=== PATIENT | male | born 1950 | race African-American/Black ===

== ENCOUNTER 2018-05-20 12:59 | Inpatient (IN) | payer MEDICARE, MEDICAID ==
[~2018-05-20] VITALS: Ht 172.7 cm; Wt 29.0 kg
[2018-05-20 13:30] VITALS: BP 165/83
[2018-05-20 13:55] LABS: BASOPHILS % (AUTO) 1.3 % (0.0-2.0); EOSINOPHILS % (AUTO) 0.8 % (0.0-3.0); HEMATOCRIT 47.5 % (42.0-52.0); HEMOGLOBIN 15.6 G/DL (14.2-18.0); LYMPHOCYTES % (AUTO) 17.9 % (20.0-45.0); MEAN CORPUSCULAR VOLUME 97 FL (80-99); PLATELET COUNT 222 K/UL (150-450)
[2018-05-20] MEDS ORDERED: Vancomycin 1 GM in NS 275 ML IVPB ONE (14:00)
[2018-05-20 14:25] LABS: APPEARANCE,URINE CLEAR; BILIRUBIN, URINE NEGATIVE (NEGATIVE); COLOR,URINE PALE YELLOW; GLUCOSE, URINE (UA) 4+ (NEGATIVE); KETONES,URINE NEGATIVE (NEGATIVE); LEUKOCYTE ESTERASE ,URINE NEGATIVE (NEGATIVE); NITRITE,URINE NEGATIVE (NEGATIVE); PH,URINE 6.5 (4.5-8.0); PROTEIN,URINE NEGATIVE (NEGATIVE); UROBILINOGEN,URINE NORMAL MG/DL (0.0-1.0)
[2018-05-20 14:27] LABS: ANION GAP 11 mmol/L (5-15); BLOOD UREA NITROGEN 12 mg/dL (7-18); CALCIUM 9.6 MG/DL (8.5-10.1); CARBON DIOXIDE 26 MMOL/L (21-32); CHLORIDE 89 MMOL/L (98-107); CREATININE 1.4 MG/DL (0.55-1.30); POTASSIUM 4.5 MMOL/L (3.5-5.1); SODIUM 126 MMOL/L (136-145)
[2018-05-20 14:28] LABS: ALANINE AMINOTRANSFERASE 48 U/L (12-78); ALBUMIN 3.7 G/DL (3.4-5.0); ALKALINE PHOSPHATASE 188 U/L (46-116); ASPARTATE AMINO TRANSFERASE 30 U/L (15-37); BILIRUBIN,TOTAL 0.4 MG/DL (0.2-1.0)
[2018-05-20 14:30] VITALS: BP 167/80
[2018-05-20 14:30] LABS: CREATINE KINASE 619 U/L (26-308)
--- NOTE | 2018-05-20 14:31 | Diagnostic Imaging Report ---
Indication: Chest pain Technique: XRAY Chest 1v Comparison: None Findings: Heart size and mediastinal contours are within normal limits given technique. There is evidence of prior coronary arterial stenting. Atherosclerotic calcifications noted in the aorta. There is no focal consolidation, pneumothorax or pleural effusion. Osseous structures demonstrate no acute abnormality. Impression: No radiographic evidence of acute cardiopulmonary disease. Evidence of prior coronary arterial stenting.
[2018-05-20] MEDS ORDERED: Insulin Human Regular 100units/ml 3ml IV ONE (14:45)
[2018-05-20] MEDS ORDERED: Norco 5mg/325mg tab ORAL ONE (15:15)
--- NOTE | 2018-05-20 15:41 | Emergency Room Report ---
History of Present Illness General Chief Complaint: Altered Level of Consciousness Source: Patient, EMS Present Illness HPI This patient has a history of diabetes. He presents because of right leg and foot pain. He states the pain is so severe that he cannot walk. He states the pain is developed over the past week. He admits that he has not been taking any of his medications to include his diabetes medications and he does use insulin in the evenings. He denies fever or chills. He denies nausea or vomiting. He has no other complaints. Allergies: Coded Allergies: No Known Allergies (Unverified , 05/20/18) Patient History Past Medical History: see triage record, DM, HTN Social History: Denies: smoking, alcohol use, drug use Reviewed Nursing Documentation: PMH: Agreed; PSxH: Agreed Nursing Documentation-PMH Past Medical History: No History, Except For Hx Hypertension: Yes Hx Diabetes: Yes Review of Systems All Other Systems: negative except mentioned in HPI Physical Exam Vital Signs Date Time Temp Pulse Resp B/P (MAP) Pulse Ox O2 Delivery O2 Flow Rate FiO2 05/20/18 12:52 97.6 100 18 124/67 98 Room Air 97.5 Sp02 EP Interpretation: reviewed, normal General Appearance: no apparent distress, alert, GCS 15, non-toxic Head: normocephalic, atraumatic Eyes: bilateral eye normal inspection, bilateral eye PERRL ENT: hearing grossly normal, normal pharynx, no angioedema, normal voice Neck: full range of motion, supple/symm/no masses Respiratory: chest non-tender, lungs clear, normal breath sounds, no respiratory distress, no retraction, no accessory muscle use, speaking full sentences Cardiovascular #1: regular rate, rhythm, no edema Gastrointestinal: normal bowel sounds, non tender, soft, non-distended, no guarding, no rebound Rectal: deferred Musculoskeletal: back normal, normal range of motion, other - RLE swelling and erythema. Neurologic: alert, oriented x3, responsive, motor strength/tone normal, sensory intact, speech normal Psychiatric: judgement/insight normal, memory normal, mood/affect normal, no suicidal/homicidal ideation Skin: normal color, no rash, warm/dry, well hydrated Medical Decision Making Diagnostic Impression: Primary Impression: Cellulitis Additional Impressions: Hyperglycemia Uncontrolled diabetes mellitus ER Course This patient presents with cellulitis. He also has a blood sugar of 800. This is likely from medication noncompliance, and addition to infection. The patient was given aggressive IV fluid resuscitation. He is given insulin and broad-spectrum antibiotics. He did remain stable here in the emergency department. He is admitted for further blood sugar control, IV antibiotics and further evaluation and treatment. Laboratory Tests Test 05/20/18 13:30 05/20/18 13:55 05/20/18 15:15 White Blood Count 7.0 K/UL (4.8-10.8) Red Blood Count 4.90 M/UL (4.70-6.10) Hemoglobin 15.6 G/DL (14.2-18.0) Hematocrit 47.5 % (42.0-52.0) Mean Corpuscular Volume 97 FL (80-99) Mean Corpuscular Hemoglobin 31.9 PG (27.0-31.0) H Mean Corpuscular Hemoglobin Concent 32.9 G/DL (32.0-36.0) Red Cell Distribution Width 12.0 % (11.6-14.8) Platelet Count 222 K/UL (150-450) Mean Platelet Volume 7.2 FL (6.5-10.1) Neutrophils (%) (Auto) 73.0 % (45.0-75.0) Lymphocytes (%) (Auto) 17.9 % (20.0-45.0) L Monocytes (%) (Auto) 7.0 % (1.0-10.0) Eosinophils (%) (Auto) 0.8 % (0.0-3.0) Basophils (%) (Auto) 1.3 % (0.0-2.0) Sodium Level 126 MMOL/L (136-145) L Potassium Level 4.5 MMOL/L (3.5-5.1) Chloride Level 89 MMOL/L (98-107) L Carbon Dioxide Level 26 MMOL/L (21-32) Anion Gap 11 mmol/L (5-15) Blood Urea Nitrogen 12 mg/dL (7-18) Creatinine 1.4 MG/DL (0.55-1.30) H Estimate Glomerular Filtration Rate > 60 mL/min (>60) Glucose Level 804 MG/DL (74-106) *H Calcium Level 9.6 MG/DL (8.5-10.1) Magnesium Level 2.2 MG/DL (1.8-2.4) Total Bilirubin 0.4 MG/DL (0.2-1.0) Aspartate Amino Transferase (AST) 30 U/L (15-37) Alanine Aminotransferase (ALT) 48 U/L (12-78) Alkaline Phosphatase 188 U/L (46-116) H Total Creatine Kinase 619 U/L (26-308) H Troponin I 0.024 ng/mL (0.000-0.056) Total Protein 7.5 G/DL (6.4-8.2) Albumin 3.7 G/DL (3.4-5.0) Globulin 3.8 g/dL Albumin/Globulin Ratio 1.0 (1.0-2.7) Serum Alcohol < 3 mg/dL Acetone Level Negative (NEGATIVE) Urine Color Pale yellow Urine Appearance Clear Urine pH 6.5 (4.5-8.0) Urine Specific [place] 1.010 (1.005-1.035) Urine Protein Negative (NEGATIVE) Urine Glucose (UA) 4+ (NEGATIVE) H Urine Ketones Negative (NEGATIVE) Urine Occult Blood Negative (NEGATIVE) Urine Nitrite Negative (NEGATIVE) Urine Bilirubin Negative (NEGATIVE) Urine Urobilinogen Normal MG/DL (0.0-1.0) Urine Leukocyte Esterase Negative (NEGATIVE) Lactic Acid Level Pending EKG Diagnostic Results Rate: normal Rhythm: NSR ST Segments: other - NSST Rhythm Strip Diag. Results EP Interpretation: yes Rate: 90's Rhythm: NSR, no PVC's, no ectopy Last Vital Signs Date Time Temp Pulse Resp B/P (MAP) Pulse Ox O2 Delivery O2 Flow Rate FiO2 05/20/18 14:30 98.9 94 18 167/80 100 Room Air 98.9 Disposition: ADMITTED INPATIENT Condition: Serious Scripts Pioglitazone Hcl* (ACTOS*) 15 Mg Tablet 15 MG ORAL DAILY for 30 Days, TAB Prov: Elliott Valero MD 05/22/18 Hydrocodone Bit/Acetaminophen 5-325* ([place] 5-325*) 1 Each Tablet 1 TAB ORAL Q6H PRN for 7 Days, TAB Prov: Elliott Valero MD 05/22/18 Colchicine (COLCRYS) 0.6 Mg Tablet 0.6 MG ORAL EVERY 6 HOURS for 3 Days, TAB Prov: Elliott Valero MD 05/22/18 Referrals: NOT CHOSEN IPA/,REFERRING (PCP) Yana Fritz DO May 20, 2018 15:41
[2018-05-20] MEDS ORDERED: Insulin Human Regular 100units/ml 3ml SUBQ ONE (16:00)
[2018-05-20] MEDS ORDERED: METFORMIN HYDRO25 G1 PO (16:59)
[2018-05-20] MEDS ORDERED: LANTUS SOL100 UNIT/1 SUBQ (17:22)
[2018-05-20] MEDS ORDERED: GLIPIZIDE5 MG ORAL (17:28)
[2018-05-20 17:49] VITALS: BP 159/85
[2018-05-20 18:19] VITALS: BP 159/85
[2018-05-20 18:28] VITALS: BP 128/63
[2018-05-20] MEDS ORDERED: Sodium Chloride 500ML 550 ML IV SCH (19:30)
[2018-05-20 20:00] VITALS: BP 108/67
[2018-05-20] MEDS: cefTRIAXone 1gm/D5W 55ml IVPB SCH ×2 (21:48)
[2018-05-20] MEDS: NovoLOG Insulin Flexpen SUBQ SCH (22:02)
[2018-05-20] MEDS: Levemir Flexpen SUBQ SCH (22:03)
[2018-05-20] MEDS: Heparin 5000 units/ml inj SUBQ SCH (22:54)
--- NOTE | 2018-05-20 23:15 | Consultation ---
DATE OF CONSULTATION: 05/20/2018 ENDOCRINOLOGY CONSULTATION CONSULTING PHYSICIAN: Paulo Gaston M.D. REFERRING PHYSICIAN: Elliott Valero M.D. REASON FOR CONSULTATION: Diabetes management. HISTORY OF PRESENT ILLNESS: It is important to note that history is mostly obtained from review of the chart and medical records since the patient is lethargic and not participating with the interview. The patient has history of diabetes and hypertension. Apparently as an outpatient, he is on metformin, glipizide, and Lantus. He presented to the hospital with right leg and foot pain and blood sugar was 800 without any ketoacidosis. Lactic acid is elevated. Endocrinology was consulted for evaluation and management of hyperglycemia. PAST MEDICAL HISTORY: Diabetes and hypertension. PAST SURGICAL HISTORY: None. SOCIAL HISTORY: No smoking, alcohol, or drug use. REVIEW OF SYSTEMS: Difficult to obtain. FAMILY HISTORY: Noncontributory. REVIEW OF SYSTEMS: Unobtainable. LABORATORY AND DIAGNOSTIC DATA: WBC 7, hemoglobin 15, hematocrit 47, and platelet of 222,000. Sodium 126, potassium 4.5, chloride 89, bicarbonate 26, BUN 11, creatinine 1.4, and glucose of 800. Lactic acid 2.9. CPK 619. PHYSICAL EXAMINATION: GENERAL: He is lethargic. VITAL SIGNS: Temperature 96.1 degrees, pulse 83, respiratory rate 20, and blood pressure 128/63. HEENT: Pupils are equal and reactive to light. Oral mucosa is dry. NECK: No JVD. HEART: Regular. LUNGS: Clear. ABDOMEN: Positive bowel sounds. EXTREMITIES: Lower extremity positive for edema and erythema. DIAGNOSES: 1. Diabetes, out of control without diabetic ketoacidosis. 2. Lactic acidosis. 3. Hyponatremia, dilutional hyponatremia due to hyperglycemia. 4. Hypothermia. 5. Cellulitis. PLAN: 1. IV hydration with normal saline. 2. Levemir 30 units at bedtime. 3. NovoLog 10 units before each meal. 4. NovoLog sliding scale before meals and at bedtime. 5. Discontinue metformin. 6. Discontinue glipizide. 7. Broad-spectrum antibiotics per primary care. 8. I will follow the patient during the hospital stay. 9. Check thyroid function test, as the patient is hypothermic. Thank you, Dr. Valero, for the courtesy of this consultation. Paulo Gaston M.D. DR: OLIVIA JOB#: [id number] CC: YOLANDA
[2018-05-21] VITALS: BP 137/71
[2018-05-21 04:00] VITALS: BP_SYST 137; BP_DIAS 66; BP_DIAS 71
[2018-05-21] MEDS: NovoLOG Insulin Flexpen SUBQ SCH ×7 (06:30→22:00)
--- NOTE | 2018-05-21 07:28 | General Progress Note ---
Assessment/Plan Problem List: (1) Uncontrolled diabetes mellitus ICD Codes: E11.65 - Type 2 diabetes mellitus with hyperglycemia SNOMED: 432649031, 61304641 (2) Cellulitis ICD Codes: L03.90 - Cellulitis, unspecified SNOMED: 179422390 Assessment/Plan continue Levemir 30 units qhs continue Novolog 10 units ac tid + NISS continue to hold Metfromin and Glipizide Subjective ROS Limited/Unobtainable: Yes Allergies: Coded Allergies: No Known Allergies (Unverified , 05/20/18) Subjective events noted - fasting glucose improved am labs pending Objective Last 24 Hour Vital Signs Date Time Temp Pulse Resp B/P (MAP) Pulse Ox O2 Delivery O2 Flow Rate FiO2 05/21/18 04:00 97.7 83 19 137/66 (89) 99 97.7 05/21/18 00:00 98.8 88 18 137/71 (93) 100 98.8 05/20/18 20:00 98.2 79 18 108/67 (81) 99 98.2 05/20/18 20:00 Room Air 05/20/18 18:28 96.1 83 20 128/63 (84) 97 96.1 05/20/18 18:19 97.5 79 15 159/85 100 Room Air 97.5 05/20/18 18:19 97.8 79 15 159/85 100 Room Air 05/20/18 17:49 74 15 159/85 100 Room Air 05/20/18 17:23 187/81 05/20/18 14:30 98.9 94 18 167/80 100 Room Air 98.9 05/20/18 13:30 98.9 99 17 165/83 99 Room Air 98.9 05/20/18 12:52 97.6 100 18 124/67 98 Room Air 97.5 Intake and Output 05/20/18 05/21/18 19:00 07:00 Intake Total 183.708 ml Balance 183.708 ml Intake IV Total 183.708 ml Laboratory Tests 05/20/18 13:30: White Blood Count 7.0, Red Blood Count 4.90, Hemoglobin 15.6, Hematocrit 47.5, Mean Corpuscular Volume 97, Mean Corpuscular Hemoglobin 31.9H, Mean Corpuscular Hemoglobin Concent 32.9, Red Cell Distribution Width 12.0, Platelet Count 222, Mean Platelet Volume 7.2, Neutrophils (%) (Auto) 73.0, Lymphocytes (%) (Auto) 17.9L, Monocytes (%) (Auto) 7.0, Eosinophils (%) (Auto) 0.8, Basophils (%) (Auto ) 1.3, Sodium Level 126L, Potassium Level 4.5, Chloride Level 89L, Carbon Dioxide Level 26, Anion Gap 11, Blood Urea Nitrogen 12, Creatinine 1.4H, Estimat Glomerular Filtration Rate > 60, Glucose Level 804*H, Hemoglobin A1c 11.8H, Calcium Level 9.6, Magnesium Level 2.2, Total Bilirubin 0.4, Aspartate Amino Transf (AST/SGOT) 30, Alanine Aminotransferase (ALT/SGPT) 48, Alkaline Phosphatase 188H, Total Creatine Kinase 619H, Troponin I 0.024, Total Protein 7.5, Albumin 3.7, Globulin 3.8, Albumin/Globulin Ratio 1.0, Thyroid Stimulating Hormone (TSH) 0.689, Free Thyroxine 1.35, Serum Alcohol < 3, Acetone Level Negative 05/20/18 13:55: Urine Color Pale yellow, Urine Appearance Clear, Urine pH 6.5, Urine Specific [place] 1.010, Urine Protein Negative, Urine Glucose (UA) 4+H, Urine Ketones Negative, Urine Occult Blood Negative, Urine Nitrite Negative, Urine Bilirubin Negative, Urine Urobilinogen Normal, Urine Leukocyte Esterase Negative 05/20/18 15:15: Lactic Acid Level 2.90H 05/20/18 15:52: Lactic Acid Level 2.70H Height (Feet): 5 Height (Inches): 8.00 Weight (Pounds): 140 General Appearance: no apparent distress Neck: normal alignment Cardiovascular: normal rate Respiratory/Chest: lungs clear Abdomen: normal bowel sounds Objective Current Medications Medications (Trade) Dose Ordered Sig/Robbie Route PRN Reason Start Time Stop Time Status Last Admin Dose Admin Ceftriaxone Sodium 1 gm/ Dextrose 55 ml @ 110 mls/hr DAILY IVPB 05/20/18 21:00 05/27/18 20:59 05/20/18 21:48 Clonidine HCl (Catapres Tab) 0.1 mg Q6HR PRN ORAL SBP>150 05/20/18 19:30 06/19/18 19:29 Dextrose (Dextrose 50%) 25 ml STAT PRN IV Hypoglycemia 05/20/18 19:30 06/19/18 19:29 Dextrose (Dextrose 50%) 50 ml STAT PRN IV Hypoglycemia 05/20/18 19:30 06/19/18 19:29 Heparin Sodium (Porcine) (Heparin 5000 units/ml) 5,000 units EVERY 12 HOURS SUBQ 05/20/18 21:00 06/19/18 20:59 05/20/18 22:54 Insulin Aspart (NovoLOG) BEFORE MEALS AND HS SUBQ 05/20/18 21:00 06/19/18 20:59 05/21/18 06:36 Insulin Aspart (NovoLOG) 10 units NOVOTIAC SUBQ 05/21/18 06:30 06/20/18 06:29 Insulin Detemir (Levemir) 30 units BEDTIME SUBQ 05/20/18 21:00 06/19/18 20:59 05/20/18 22:03 Sodium Chloride 1,000 ml @ 75 mls/hr [id number] IV 05/20/18 20:00 06/19/18 19:59 05/20/18 21:48 Item Value Date Time Bedside Blood Glucose 187 mg/dl H 05/21/18 0636 Bedside Blood Glucose 145 mg/dl H 05/20/18 2203 Bedside Blood Glucose 301 mg/dl H 05/20/18 1732 Glucose Level 804 MG/DL *H 05/20/18 1330 Bedside Blood Glucose Critically High Result 05/20/18 1445 Paulo Gaston MD May 21, 2018 07:28
[2018-05-21 08:00] VITALS: BP 146/88
[2018-05-21] MEDS: cefTRIAXone 1gm/D5W 55ml IVPB SCH ×2 (08:30)
[2018-05-21] MEDS: Heparin 5000 units/ml inj SUBQ SCH ×2 (08:32→21:59)
[2018-05-21 11:37] VITALS: BP 134/96
--- NOTE | 2018-05-21 12:47 | Diagnostic Imaging Report ---
Indication: Right foot pain Technique: 3 views right foot Comparison: none Findings: There is hallux valgus and bunion formation. There is mild metatarsus adductus. No acute fractures. No dislocations. Joint spaces are preserved Impression: No acute bony trauma
[2018-05-21 13:12] LABS: BASOPHILS % (AUTO) 1.3 % (0.0-2.0); EOSINOPHILS % (AUTO) 1.7 % (0.0-3.0); HEMATOCRIT 44.8 % (42.0-52.0); HEMOGLOBIN 14.8 G/DL (14.2-18.0); LYMPHOCYTES % (AUTO) 21.4 % (20.0-45.0); MEAN CORPUSCULAR VOLUME 97 FL (80-99); MONOCYTES % (AUTO) 5.4 % (1.0-10.0); NEUTROPHILS % (AUTO) 70.3 % (45.0-75.0); PLATELET COUNT 212 K/UL (150-450); RED BLOOD COUNT 4.64 M/UL (4.70-6.10); RED CELL DISTRIBUTION WIDTH 12.4 % (11.6-14.8); WHITE BLOOD COUNT 6.8 K/UL (4.8-10.8)
[2018-05-21 13:33] LABS: ALANINE AMINOTRANSFERASE 41 U/L (12-78); ALBUMIN 2.9 G/DL (3.4-5.0); ALBUMIN/GLOBULIN RATIO 0.8 (1.0-2.7); ALKALINE PHOSPHATASE 118 U/L (46-116); ANION GAP 9 mmol/L (5-15); ASPARTATE AMINO TRANSFERASE 33 U/L (15-37); BILIRUBIN,TOTAL 0.3 MG/DL (0.2-1.0); BLOOD UREA NITROGEN 11 mg/dL (7-18); CALCIUM 8.8 MG/DL (8.5-10.1); CARBON DIOXIDE 28 MMOL/L (21-32); CHLORIDE 104 MMOL/L (98-107); POTASSIUM 4.3 MMOL/L (3.5-5.1); SODIUM 141 MMOL/L (136-145)
[2018-05-21 16:00] VITALS: BP 156/87
--- NOTE | 2018-05-21 18:15 | History and Physical Report ---
DATE OF ADMISSION: 05/20/2018 HISTORY OF PRESENT ILLNESS: This is a 67-year-old male, who came to the hospital with hyperglycemia. The patient states he is having right leg and right foot pain as well. The patient states that he was previously taking glipizide, although he has stopped taking it recently for unclear reasons. Overnight, he was seen by Dr. Paulo Gaston, who documented type 2 diabetes mellitus with hyperglycemia and right lower extremity cellulitis. The patient was started on Levemir and NovoLog. The patient at this time reports right foot pain. PAST MEDICAL HISTORY: Notable for diabetes mellitus. There is history of CABG and CAD as well. HOME MEDICATIONS: Include metformin and glipizide. ALLERGIES: None reported. REVIEW OF SYSTEMS: Denies any headaches, hematemesis, melena, hematochezia, night sweats, or weight loss. PHYSICAL EXAMINATION: GENERAL: Reveals a 67-year-old male. HEENT: Unremarkable. LUNGS: Clear breath sounds bilaterally. ABDOMEN: Soft. EXTREMITIES: There is no edema. His right lower extremity shows no evidence of cellulitis. He has dark skin, therefore, it is difficult to distinguish any area of inflammation. He has difficulty moving his right great toe. He has evidence of bilateral fungal toenail infection. NEUROLOGIC: Nonfocal. LABORATORY DATA: Lab testing shows normal CBC. Chemistry notable for glucose of 804, creatinine 1.4, and sodium 126. Urinalysis is negative. Imaging is negative except for evidence of prior coronary artery bypass graft/neurotomy on chest x-ray. IMPRESSION: 1. Hyperglycemia. 2. Probable gout. 3. Toenail fungus. 4. Diabetes mellitus. 5. Hypertension. DISCUSSION: Admitted to the hospital. I will continue drug regimen per Dr. Gaston. Empiric antibiotics, Rocephin and vancomycin, which have now been discontinued and Rocephin has been reordered. I will start colchicine. If his renal function normalizes, I will start him back on metformin. We will follow carefully. Elliott Valero M.D. DR: FERCHO JOB#: [id number] CC:
[2018-05-21] MEDS: Norco 5mg/325mg tab ORAL PRN (19:53)
[2018-05-21 20:00] VITALS: BP 195/106
[2018-05-21] MEDS: Levemir Flexpen SUBQ SCH (22:00)
--- NOTE | 2018-05-21 22:00 | Consultation ---
DATE OF CONSULTATION: 05/21/2018 CONSULTING PHYSICIAN: Yung Dozier M.D. REFERRING PHYSICIAN: Elliott Valero M.D. REASON FOR CONSULTATION: 1. Acute kidney injury. 2. Hyponatremia. HISTORY OF PRESENT ILLNESS: The patient is a pleasant 67-year-old gentleman with known underlying diabetes mellitus, who presented to the emergency room for evaluation and care of right leg and foot pain to the point where he stated he was having difficulty walking felt fatigued and noted to have a severe elevated serum glucose of 800 with a sodium of 126 and creatinine of 1.4. He denied any nausea, vomiting, or diarrhea. PAST MEDICAL HISTORY: 1. Diabetes mellitus. 2. Hypertension. PAST SURGICAL HISTORY: Noncontributory. ALLERGIES: No known drug allergies. SOCIAL HISTORY: No tobacco, alcohol, or illicit drug use. FAMILY HISTORY: Positive for diabetes and hypertension. PHYSICAL EXAMINATION: VITAL SIGNS: Blood pressure 134/96, respiratory rate 20, pulse 87, and temperature 98.1. GENERAL: The patient is awake, alert, and not otherwise in distress. HEENT: Extraocular muscles intact. No lymphadenopathy. CARDIOVASCULAR: S1 and S2. No rubs or gallops. PULMONARY: Clear to auscultation bilaterally. No rales, rhonchi, or wheezes. ABDOMEN: Nondistended and nontender. EXTREMITIES: No edema. SKIN: No rashes. LABORATORY DATA: Laboratories dated 05/20/2018, sodium 126, creatinine 1.4, and glucose 804. White cell count 7, hemoglobin 15.6, and platelet count 222,000. ASSESSMENT AND PLAN: 1. Hyponatremia. At this time, pseudo in nature due to severe elevated glucose. As glucose elevation is corrected, pseudohyponatremia will resolve. Continue with IV fluids. 2. Acute kidney injury secondary to intravascular volume prerenal depletion. At this time, intravenous fluids and correction of underlying severe hyperglycemia has been undertaken by Endocrinology. Morning laboratories are still pending. Hopefully, with hydration and correction of underlying severe hyperglycemia, renal function will return to normal. We will defer on further evaluation at this time until morning laboratories return. 3. Severe hyperglycemia. Being managed by Endocrinology. 4. Dehydration. The patient has been aggressively hydrated. Let me take this opportunity to thank Dr. Valero. Yung Dozier MD DR: DENAE JOB#: [id number] CC: YOLANDA
[2018-05-22] MEDS: Norco 5mg/325mg tab ORAL PRN (03:29)
[2018-05-22 04:00] VITALS: BP 157/91
[2018-05-22] MEDS: NovoLOG Insulin Flexpen SUBQ SCH ×2 (06:12)
[2018-05-22 06:47] LABS: BASOPHILS % (AUTO) 1.2 % (0.0-2.0); EOSINOPHILS % (AUTO) 1.8 % (0.0-3.0); HEMATOCRIT 44.8 % (42.0-52.0); HEMOGLOBIN 15.6 G/DL (14.2-18.0); LYMPHOCYTES % (AUTO) 21.8 % (20.0-45.0); MEAN CORPUSCULAR VOLUME 96 FL (80-99); MONOCYTES % (AUTO) 8.9 % (1.0-10.0); NEUTROPHILS % (AUTO) 66.3 % (45.0-75.0); PLATELET COUNT 208 K/UL (150-450); RED BLOOD COUNT 4.64 M/UL (4.70-6.10); RED CELL DISTRIBUTION WIDTH 12.3 % (11.6-14.8); WHITE BLOOD COUNT 5.9 K/UL (4.8-10.8)
--- NOTE | 2018-05-22 06:55 | General Progress Note ---
Assessment/Plan Problem List: (1) Uncontrolled diabetes mellitus ICD Codes: E11.65 - Type 2 diabetes mellitus with hyperglycemia SNOMED: 983001274, [id number] (2) Cellulitis ICD Codes: L03.90 - Cellulitis, unspecified SNOMED: 968805505 Assessment/Plan fasting glucose is elevated after he refused Levemir last night change Levemir 30 units qhs to 20 units qam continue Novolog 10 units ac tid + NISS continue to hold Metfromin and Glipizide Subjective Allergies: Coded Allergies: No Known Allergies (Unverified , 05/20/18) All Systems: reviewed and negative except above Subjective events noted Objective Last 24 Hour Vital Signs Date Time Temp Pulse Resp B/P (MAP) Pulse Ox O2 Delivery O2 Flow Rate FiO2 05/22/18 04:00 98.0 88 19 157/91 (113) 99 98.0 05/21/18 21:00 Room Air 05/21/18 20:00 97.9 112 22 195/106 (135) 99 97.9 05/21/18 16:00 98.1 92 20 156/87 (110) 97 98.1 05/21/18 11:37 98.1 87 20 134/96 (109) 97 98.1 05/21/18 09:00 Room Air 05/21/18 08:00 97.6 88 20 146/88 (107) 97 97.6 Intake and Output 05/21/18 05/22/18 19:00 07:00 Intake Total 1175 ml Balance 1175 ml Intake Oral 500 ml IV Total 675 ml # Voids 3 2 Laboratory Tests 05/21/18 12:55: White Blood Count 6.8, Red Blood Count 4.64L, Hemoglobin 14.8, Hematocrit 44.8, Mean Corpuscular Volume 97, Mean Corpuscular Hemoglobin 31.9H, Mean Corpuscular Hemoglobin Concent 33.0, Red Cell Distribution Width 12.4, Platelet Count 212, Mean Platelet Volume 7.2, Neutrophils (%) (Auto) 70.3, Lymphocytes (%) (Auto) 21.4, Monocytes (%) (Auto) 5.4, Eosinophils (%) (Auto) 1.7, Basophils (%) (Auto ) 1.3, Sodium Level 141#, Potassium Level 4.3, Chloride Level 104, Carbon Dioxide Level 28, Anion Gap 9, Blood Urea Nitrogen 11, Creatinine 1.0, Estimat Glomerular Filtration Rate > 60, Glucose Level 114#H, Calcium Level 8.8, Total Bilirubin 0.3, Aspartate Amino Transf (AST/SGOT) 33, Alanine Aminotransferase ( ALT/SGPT) 41, Alkaline Phosphatase 118H, Total Protein 6.4, Albumin 2.9L, Globulin 3.5, Albumin/Globulin Ratio 0.8L 05/22/18 06:15: White Blood Count [Pending], Red Blood Count [Pending], Hemoglobin [Pending], Hematocrit [Pending], Mean Corpuscular Volume [Pending], Mean Corpuscular Hemoglobin [Pending], Mean Corpuscular Hemoglobin Concent [Pending], Red Cell Distribution Width [Pending], Platelet Count [Pending], Mean Platelet Volume [ Pending], Neutrophils (%) (Auto) [Pending], Lymphocytes (%) (Auto) [Pending], Monocytes (%) (Auto) [Pending], Eosinophils (%) (Auto) [Pending], Basophils (%) (Auto) [Pending], Sodium Level [Pending], Potassium Level [Pending], Chloride Level [Pending], Carbon Dioxide Level [Pending], Blood Urea Nitrogen [Pending], Creatinine [Pending], Estimat Glomerular Filtration Rate [Pending], Glucose Level [Pending], Calcium Level [Pending] Height (Feet): 5 Height (Inches): 8.00 Weight (Pounds): 64 General Appearance: no apparent distress Neck: normal alignment Cardiovascular: normal rate Respiratory/Chest: lungs clear Abdomen: normal bowel sounds Objective Current Medications Medications (Trade) Dose Ordered Sig/Robbie Route PRN Reason Start Time Stop Time Status Last Admin Dose Admin Acetaminophen (Tylenol) 650 mg Q6H PRN ORAL Mild Pain/Temp > 100.5 05/21/18 09:30 06/20/18 09:29 Acetaminophen/ Hydrocodone Bitart ([place] 5/325) 1 tab Q6H PRN ORAL Severe Pain (Pain Scale 7-10) 05/21/18 19:45 05/28/18 19:44 05/22/18 03:29 Ceftriaxone Sodium 1 gm/ Dextrose 55 ml @ 110 mls/hr DAILY IVPB 05/20/18 21:00 7/30/18 20:59 05/21/18 08:30 Clonidine HCl (Catapres Tab) 0.1 mg Q6HR PRN ORAL SBP>150 05/20/18 19:30 06/19/18 19:29 Colchicine (Colchicine) 0.6 mg EVERY 6 HOURS ORAL 05/21/18 12:00 06/20/18 11:59 05/22/18 06:13 Dextrose (Dextrose 50%) 25 ml STAT PRN IV Hypoglycemia 05/20/18 19:30 06/19/18 19:29 Dextrose (Dextrose 50%) 50 ml STAT PRN IV Hypoglycemia 05/20/18 19:30 06/19/18 19:29 Heparin Sodium (Porcine) (Heparin 5000 units/ml) 5,000 units EVERY 12 HOURS SUBQ 05/20/18 21:00 06/19/18 20:59 05/21/18 08:32 Insulin Aspart (NovoLOG) BEFORE MEALS AND HS SUBQ 05/20/18 21:00 06/19/18 20:59 05/22/18 06:12 Insulin Aspart (NovoLOG) 10 units NOVOTIAC SUBQ 05/21/18 06:30 06/20/18 06:29 05/22/18 06:12 Insulin Detemir (Levemir) 30 units BEDTIME SUBQ 05/20/18 21:00 06/19/18 20:59 05/20/18 22:03 Sodium Chloride 1,000 ml @ 75 mls/hr [id number] IV 05/20/18 20:00 06/19/18 19:59 05/21/18 09:32 Item Value Date Time Bedside Blood Glucose 223 mg/dl H 05/22/18 0612 Bedside Blood Glucose 191 mg/dl H 05/21/18 1637 Bedside Blood Glucose 286 mg/dl H 05/21/18 1143 Bedside Blood Glucose 187 mg/dl H 05/21/18 0636 Paulo Gaston MD May 22, 2018 06:55
[2018-05-22 07:01] LABS: ANION GAP 7 mmol/L (5-15); BLOOD UREA NITROGEN 11 mg/dL (7-18); CALCIUM 9.2 MG/DL (8.5-10.1); CARBON DIOXIDE 29 MMOL/L (21-32); CHLORIDE 100 MMOL/L (98-107); POTASSIUM 5.1 MMOL/L (3.5-5.1); SODIUM 136 MMOL/L (136-145)
[2018-05-22] MEDS: cefTRIAXone 1gm/D5W 55ml IVPB SCH ×2 (08:06)
[2018-05-22] MEDS: Heparin 5000 units/ml inj SUBQ SCH (08:06)
[2018-05-22 08:43] VITALS: BP 153/93
--- NOTE | 2018-05-22 08:45 | Nephrology Progress Note ---
Assessment/Plan Assessment/Plan 1. MALENA- due to volume depletion - resolved - OK for DC from renal point 2. Hyponatremia- pseudo due to severe hyperglycemia - resolved 3. Dehydration- resolved on IVFs. OK for DC from renal point 4. DM OOC- resolved Subjective Date patient seen: May 22, 2018 Time patient seen: 08:43 ROS Limited/Unobtainable: Yes Allergies: Coded Allergies: No Known Allergies (Unverified , 05/20/18) Subjective Patient doing well, currently in shower Objective Last 24 Hour Vital Signs Date Time Temp Pulse Resp B/P (MAP) Pulse Ox O2 Delivery O2 Flow Rate FiO2 05/22/18 08:43 98.0 82 19 153/93 (113) 99 98.0 05/22/18 07:29 Room Air 05/22/18 04:00 98.0 88 19 157/91 (113) 99 98.0 05/21/18 21:00 Room Air 05/21/18 20:00 97.9 112 22 195/106 (135) 99 97.9 05/21/18 16:00 98.1 92 20 156/87 (110) 97 98.1 05/21/18 11:37 98.1 87 20 134/96 (109) 97 98.1 05/21/18 09:00 Room Air Intake and Output 05/21/18 05/22/18 19:00 07:00 Intake Total 1175 ml Balance 1175 ml Intake Oral 500 ml IV Total 675 ml # Voids 3 2 Laboratory Tests 05/21/18 12:55: White Blood Count 6.8, Red Blood Count 4.64L, Hemoglobin 14.8, Hematocrit 44.8, Mean Corpuscular Volume 97, Mean Corpuscular Hemoglobin 31.9H, Mean Corpuscular Hemoglobin Concent 33.0, Red Cell Distribution Width 12.4, Platelet Count 212, Mean Platelet Volume 7.2, Neutrophils (%) (Auto) 70.3, Lymphocytes (%) (Auto) 21.4, Monocytes (%) (Auto) 5.4, Eosinophils (%) (Auto) 1.7, Basophils (%) (Auto ) 1.3, Sodium Level 141#, Potassium Level 4.3, Chloride Level 104, Carbon Dioxide Level 28, Anion Gap 9, Blood Urea Nitrogen 11, Creatinine 1.0, Estimat Glomerular Filtration Rate > 60, Glucose Level 114#H, Calcium Level 8.8, Total Bilirubin 0.3, Aspartate Amino Transf (AST/SGOT) 33, Alanine Aminotransferase ( ALT/SGPT) 41, Alkaline Phosphatase 118H, Total Protein 6.4, Albumin 2.9L, Globulin 3.5, Albumin/Globulin Ratio 0.8L 05/22/18 06:15: White Blood Count 5.9, Red Blood Count 4.64L, Hemoglobin 15.6, Hematocrit 44.8, Mean Corpuscular Volume 96, Mean Corpuscular Hemoglobin 33.5H, Mean Corpuscular Hemoglobin Concent 34.7, Red Cell Distribution Width 12.3, Platelet Count 208, Mean Platelet Volume 7.4, Neutrophils (%) (Auto) 66.3, Lymphocytes (%) (Auto) 21.8, Monocytes (%) (Auto) 8.9, Eosinophils (%) (Auto) 1.8, Basophils (%) (Auto ) 1.2, Sodium Level 136, Potassium Level 5.1, Chloride Level 100, Carbon Dioxide Level 29, Anion Gap 7, Blood Urea Nitrogen 11, Creatinine 1.0, Estimat Glomerular Filtration Rate > 60, Glucose Level 257#H, Calcium Level 9.2 Height (Feet): 5 Height (Inches): 8.00 Weight (Pounds): 64 Yung Dozier M.D. May 22, 2018 08:45
--- NOTE | 2018-05-22 08:53 | Pulmonology Progress Note ---
Assessment/Plan Assessment/Plan IMPRESSION: 1. Hyperglycemia. 2. Probable gout. 3. Toenail fungus. 4. Diabetes mellitus. 5. Hypertension. DISCUSSION: A Will dc home PO colchicine, [place], Glipizide and Actos Will dc Metformin given renal dysfunction and lactic acidosis (per Verónicazemi) Outpt follow up. Subjective Interval Events: Better; cr now 1.0 Constitutional: Reports: no symptoms HEENT: Repors: no symptoms Respiratory: Reports: no symptoms Cardiovascular: Reports: no symptoms Gastrointestinal/Abdominal: Reports: no symptoms Allergies: Coded Allergies: No Known Allergies (Unverified , 05/20/18) Objective Last 24 Hour Vital Signs Date Time Temp Pulse Resp B/P (MAP) Pulse Ox O2 Delivery O2 Flow Rate FiO2 05/22/18 08:43 98.0 82 19 153/93 (113) 99 98.0 05/22/18 07:29 Room Air 05/22/18 04:00 98.0 88 19 157/91 (113) 99 98.0 05/21/18 21:00 Room Air 05/21/18 20:00 97.9 112 22 195/106 (135) 99 97.9 05/21/18 16:00 98.1 92 20 156/87 (110) 97 98.1 05/21/18 11:37 98.1 87 20 134/96 (109) 97 98.1 05/21/18 09:00 Room Air Intake and Output 05/21/18 05/22/18 19:00 07:00 Intake Total 1175 ml Balance 1175 ml Intake Oral 500 ml IV Total 675 ml # Voids 3 2 General Appearance: no acute distress HEENT: normocephalic Respiratory/Chest: chest wall non-tender, lungs clear Cardiovascular: normal peripheral pulses, normal rate Abdomen: normal bowel sounds Extremities: no cyanosis Microbiology Date/Time Source Procedure Growth Status 05/20/18 13:45 Blood Blood Culture - Preliminary NO GROWTH AFTER 24 HOURS Resulted 05/20/18 13:30 Blood Blood Culture - Preliminary NO GROWTH AFTER 24 HOURS Resulted Laboratory Tests 05/21/18 12:55: White Blood Count 6.8, Red Blood Count 4.64L, Hemoglobin 14.8, Hematocrit 44.8, Mean Corpuscular Volume 97, Mean Corpuscular Hemoglobin 31.9H, Mean Corpuscular Hemoglobin Concent 33.0, Red Cell Distribution Width 12.4, Platelet Count 212, Mean Platelet Volume 7.2, Neutrophils (%) (Auto) 70.3, Lymphocytes (%) (Auto) 21.4, Monocytes (%) (Auto) 5.4, Eosinophils (%) (Auto) 1.7, Basophils (%) (Auto ) 1.3, Sodium Level 141#, Potassium Level 4.3, Chloride Level 104, Carbon Dioxide Level 28, Anion Gap 9, Blood Urea Nitrogen 11, Creatinine 1.0, Estimat Glomerular Filtration Rate > 60, Glucose Level 114#H, Calcium Level 8.8, Total Bilirubin 0.3, Aspartate Amino Transf (AST/SGOT) 33, Alanine Aminotransferase ( ALT/SGPT) 41, Alkaline Phosphatase 118H, Total Protein 6.4, Albumin 2.9L, Globulin 3.5, Albumin/Globulin Ratio 0.8L 05/22/18 06:15: White Blood Count 5.9, Red Blood Count 4.64L, Hemoglobin 15.6, Hematocrit 44.8, Mean Corpuscular Volume 96, Mean Corpuscular Hemoglobin 33.5H, Mean Corpuscular Hemoglobin Concent 34.7, Red Cell Distribution Width 12.3, Platelet Count 208, Mean Platelet Volume 7.4, Neutrophils (%) (Auto) 66.3, Lymphocytes (%) (Auto) 21.8, Monocytes (%) (Auto) 8.9, Eosinophils (%) (Auto) 1.8, Basophils (%) (Auto ) 1.2, Sodium Level 136, Potassium Level 5.1, Chloride Level 100, Carbon Dioxide Level 29, Anion Gap 7, Blood Urea Nitrogen 11, Creatinine 1.0, Estimat Glomerular Filtration Rate > 60, Glucose Level 257#H, Calcium Level 9.2 Current Medications Medications (Trade) Dose Ordered Sig/Robbie Route PRN Reason Start Time Stop Time Status Last Admin Dose Admin Acetaminophen (Tylenol) 650 mg Q6H PRN ORAL Mild Pain/Temp > 100.5 05/21/18 09:30 06/20/18 09:29 Acetaminophen/ Hydrocodone Bitart ([place] 5/325) 1 tab Q6H PRN ORAL Severe Pain (Pain Scale 7-10) 05/21/18 19:45 05/28/18 19:44 05/22/18 03:29 Ceftriaxone Sodium 1 gm/ Dextrose 55 ml @ 110 mls/hr DAILY IVPB 05/20/18 21:00 05/27/18 20:59 05/22/18 08:06 Clonidine HCl (Catapres Tab) 0.1 mg Q6HR PRN ORAL SBP>150 05/20/18 19:30 06/19/18 19:29 Colchicine (Colchicine) 0.6 mg EVERY 6 HOURS ORAL 05/21/18 12:00 06/20/18 11:59 05/22/18 06:13 Dextrose (Dextrose 50%) 25 ml STAT PRN IV Hypoglycemia 05/20/18 19:30 06/19/18 19:29 Dextrose (Dextrose 50%) 50 ml STAT PRN IV Hypoglycemia 05/20/18 19:30 06/19/18 19:29 Heparin Sodium (Porcine) (Heparin 5000 units/ml) 5,000 units EVERY 12 HOURS SUBQ 05/20/18 21:00 06/19/18 20:59 05/22/18 08:06 Insulin Aspart (NovoLOG) BEFORE MEALS AND HS SUBQ 05/20/18 21:00 06/19/18 20:59 05/22/18 06:12 Insulin Aspart (NovoLOG) 10 units NOVOTIAC SUBQ 05/21/18 06:30 06/20/18 06:29 05/22/18 06:12 Insulin Detemir (Levemir) 20 units DAILY SUBQ 05/22/18 09:00 06/19/18 20:59 05/22/18 08:07 Sodium Chloride 1,000 ml @ 75 mls/hr [id number] IV 05/20/18 20:00 06/19/18 19:59 05/21/18 09:32 Elliott Valero MD May 22, 2018 08:53
[2018-05-22] MEDS ORDERED: NORCO 5-325 TA1 EACH ORAL (08:57)
[2018-05-22] MEDS ORDERED: COLCRYS0.6 M1 ORAL (08:57)
[2018-05-22] MEDS ORDERED: ACTOS15 MG ORAL (08:57)
[2018-05-22] MEDS ORDERED: Levemir Flexpen SUBQ SCH (09:00)
--- NOTE | 2018-05-22 15:46 | Cardiology Report ---
APPROVED REPORT EKG Measurement Heart [id number] CT 148P65 [id number] Normal sinus rhythm Minimal voltage criteria for LVH, may be normal variant T wave abnormality, consider lateral ischemia Prolonged QT Abnormal ECG
--- NOTE | 2018-05-23 09:59 | Discharge Summary ---
Discharge Summary Discharge Summary _ DATE OF ADMISSION: 05/20/2018 DATE OF DISCHARGE: 05/22/2018 CONSULTANTS: Dr. Yung Gaston BRIEF HOSPITAL COURSE: Patient is a 67-year-old male, who presented to the hospital via EMS with hyperglycemia. He was having right leg and right foot pain. He stated he was previously taking glipizide although had stopped recently for unclear reasons. He presented to ED because of right leg and foot pain that is severe that he cannot ambulate. The pain developed over the past week. He has medical history significant for diabetes mellitus and hypertension. On evaluation at ED, right lower extremity was with swelling and erythema. Blood work did not show any leukocytoses. Glucose was elevated to 800. Anion gap was 11, carbon dioxide level 26. Urine was negative for ketones, negative acetone. Lactic acid was elevated to 2.9. Creatinine was elevated to 1.4, sodium was 126. He was given aggressive IV resuscitation. He was given insulin and was started on broad-spectrum antibiotics. He was admitted for cellulitis and uncontrolled diabetes mellitus. 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 He was continued on IV fluids and was placed on Levemir 30 units daily at bedtime and NovoLog 10 units before each meal on top of sliding scale. Metformin and glipizide was discontinued. He was given ceftriaxone. Patient had hyponatremia possible pseudo-in nature due to elevated glucose. He had acute kidney injury secondary to intravascular volume prerenal depletion. 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 Electrolytes were monitored. Dehydration resolved on IV fluids. Acute kidney injury resolved. Hyponatremia resolved. Blood culture was negative. He was cleared for discharge home. To continue colchicine, Actos, [place] and glipizide. DC metformin. FINAL DIAGNOSES: Diabetes mellitus, out of control, with hyperglycemia, without diabetic ketoacidosis Probable gout Toenail fungus Lactic acidosis Hyponatremia Hypertension Acute kidney injury Dehydration Right leg cellulitis, treated with IV abx DISPOSITION: Patient was discharged home. DISCHARGE MEDICATIONS: Refer to Discharge Medication List. DISCHARGE INSTRUCTIONS: Follow up with PCP in a week. I have been assigned to dictate discharge summary on this account, and I was not involved in the patient's management. Bekah Her NP May 23, 2018 09:59
--- NOTE | 2018-05-23 12:44 | Diagnostic Imaging Report ---
APPROVED REPORT Present Symptoms Comments: RIGHT LEG PAIN. RIGHT LEG: Venous imaging reveals a patent deep venous system. There is no evidence of thrombus within the femoral, popliteal or tibial segments. The greater saphenous vein is also within normal limits. Doppler indicates normal spontaneous flow within these segments.
== END 2018-05-22 11:02 | disposition home or self-care (01) | DRG 420 ==
LOC: EDBD 12:59 → EMR 14:07 → 4W 15:01 → EDBEDREQSVC 15:22 → EDBEDREQ 16:53
DX: E11.65 Type 2 diabetes mellitus with hyperglycemia (principal); N17.9 Acute kidney failure, unspecified; E87.2 Acidosis; L03.115 Cellulitis of right lower limb; B35.1 Tinea unguium; M10.9 Gout, unspecified; E86.0 Dehydration; E87.1 Hypo-osmolality and hyponatremia; I10 Essential (primary) hypertension; I25.10 Atherosclerotic heart disease of native coronary artery without angina pectoris; Z95.1 Presence of aortocoronary bypass graft; Z79.4 Long term (current) use of insulin
CPT/HCPCS: 36415; 71045; 80048; 80053; 80329; 81003; 82009; 82550; 82962; 83036; 83605; 83735; 84439; 84443; 84484; 85025; 87040; 93005; 93971; J1815; S5561

== ENCOUNTER 2018-07-10 03:17 | Inpatient (IN) | payer MEDICARE, MEDICAID ==
[~2018-07-10] VITALS: Ht 177.8 cm; Wt 60.8 kg
[~2018-07-10 03:17] MED LIST: ACTOS15 MG ORAL; COLCRYS0.6 M1 ORAL; GLIPIZIDE5 MG ORAL; LANTUS SOL100 UNIT/1 SUBQ; METFORMIN HYDRO25 G1 PO; NORCO 5-325 TA1 EACH ORAL
[2018-07-10] MEDS ORDERED: Sodium Chloride 500ML 500 ML IV ONE (03:26)
[2018-07-10 03:53] LABS: BASOPHILS % (AUTO) 0.8 % (0.0-2.0); EOSINOPHILS % (AUTO) 2.3 % (0.0-3.0); HEMOGLOBIN 14.6 G/DL (14.2-18.0); LYMPHOCYTES % (AUTO) 29.3 % (20.0-45.0); MEAN CORPUSCULAR VOLUME 96 FL (80-99); MONOCYTES % (AUTO) 6.9 % (1.0-10.0); NEUTROPHILS % (AUTO) 60.7 % (45.0-75.0); PLATELET COUNT 234 K/UL (150-450); RED BLOOD COUNT 4.36 M/UL (4.70-6.10); RED CELL DISTRIBUTION WIDTH 11.6 % (11.6-14.8); WHITE BLOOD COUNT 5.9 K/UL (4.8-10.8)
--- NOTE | 2018-07-10 03:53 | Emergency Room Report ---
History of Present Illness General Chief Complaint: Generalized Weakness Source: Patient, EMS Present Illness HPI Patient is a 67-year-old male who presented after increased generalized weakness. Patient gradual onset of symptoms. The patient reports having had been taking oral anti-diabetic medications however he had run out of his medications. The patient states that he is a smoker. He reports having some chest discomfort. This was intermittent in nature. The patient reportedly had been having normal urination. He denies any fever. The patient presents feeling somewhat weak all over. The patient was brought in by EMS Allergies: Coded Allergies: No Known Allergies (Unverified , 05/20/18) Patient History Past Medical History: see triage record, DM, HTN, CAD Social History: Reports: smoking Reviewed Nursing Documentation: PMH: Agreed; PSxH: Agreed Nursing Documentation-PMH Past Medical History: No History, Except For Hx Cardiac Problems: Yes - HTN Hx Hypertension: Yes Hx Diabetes: Yes Hx Cancer: No Hx Gastrointestinal Problems: No Hx Neurological Problems: No Review of Systems All Other Systems: negative except mentioned in HPI Physical Exam Vital Signs Date Time Temp Pulse Resp B/P (MAP) Pulse Ox O2 Delivery O2 Flow Rate FiO2 07/10/18 03:17 99.1 106 14 170/100 99 Room Air 99.1 Sp02 EP Interpretation: reviewed, normal General Appearance: normal inspection, well appearing, no apparent distress, alert, GCS 15 Head: atraumatic ENT: normal ENT inspection, hearing grossly normal, normal voice Neck: normal inspection, full range of motion, supple, no bony tend Respiratory: normal inspection, lungs clear, normal breath sounds, no respiratory distress, no retraction, no wheezing Cardiovascular #1: regular rate, rhythm, no edema Gastrointestinal: normal inspection, normal bowel sounds, non tender, soft, no guarding, no hernia Genitourinary: no CVA tenderness Musculoskeletal: normal inspection, back normal, normal range of motion Neurologic: normal inspection, alert, oriented x3, responsive, oil extractor III-XII nml as tested, speech normal Psychiatric: normal inspection, judgement/insight normal, mood/affect normal Skin: normal inspection, normal color, no rash Medical Decision Making Diagnostic Impression: Primary Impression: Chest pain Additional Impression: Uncontrolled diabetes mellitus ER Course Patient presented for generalized weakness. Differential diagnosis included was not limited to anemia, urinary tract infection, electrolyte abnormality, hypothyroidism, myocardial infarction, myasthenia gravis, dehydration, among others. Because of complexity of patient's case laboratory testing and imaging studies were ordered. The patient was noted to have an elevated blood sugar. The initial Accu-Chek showed blood sugar 590.EKG interpreted by me showed sinus tachycardia with a rate of [address] or T wave changes.The patient was started on IV fluids. Is given IV insulin.Dr. Brown Foss was contacted for inpatient management due to panel physician Labs Test 07/10/18 03:35 07/10/18 04:33 White Blood Count 5.9 K/UL (4.8-10.8) Red Blood Count 4.36 M/UL (4.70-6.10) Hemoglobin 14.6 G/DL (14.2-18.0) Hematocrit 42.0 % (42.0-52.0) Mean Corpuscular Volume 96 FL (80-99) Mean Corpuscular Hemoglobin 33.4 PG (27.0-31.0) Mean Corpuscular Hemoglobin Concent 34.6 G/DL (32.0-36.0) Red Cell Distribution Width 11.6 % (11.6-14.8) Platelet Count 234 K/UL (150-450) Mean Platelet Volume 6.9 FL (6.5-10.1) Neutrophils (%) (Auto) 60.7 % (45.0-75.0) Lymphocytes (%) (Auto) 29.3 % (20.0-45.0) Monocytes (%) (Auto) 6.9 % (1.0-10.0) Eosinophils (%) (Auto) 2.3 % (0.0-3.0) Basophils (%) (Auto) 0.8 % (0.0-2.0) Sodium Level 133 MMOL/L (136-145) Potassium Level 3.8 MMOL/L (3.5-5.1) Chloride Level 95 MMOL/L (98-107) Carbon Dioxide Level 28 MMOL/L (21-32) Anion Gap 10 mmol/L (5-15) Blood Urea Nitrogen 9 mg/dL (7-18) Creatinine 1.1 MG/DL (0.55-1.30) Estimat Glomerular Filtration Rate > 60 mL/min (>60) Glucose Level 488 MG/DL (74-106) Lactic Acid Level 2.30 mmol/L (0.4-2.0) Calcium Level 9.7 MG/DL (8.5-10.1) Total Bilirubin 0.5 MG/DL (0.2-1.0) Aspartate Amino Transf (AST/SGOT) 35 U/L (15-37) Alanine Aminotransferase (ALT/SGPT) 46 U/L (12-78) Alkaline Phosphatase 156 U/L (46-116) Total Creatine Kinase 652 U/L (26-308) Creatine Kinase MB 5.2 NG/ML (0.0-3.6) Creatine Kinase MB Relative Index 0.7 Troponin I 0.024 ng/mL (0.000-0.056) Pro-B-Type Natriuretic Peptide 476 pg/mL (0-125) Total Protein 7.6 G/DL (6.4-8.2) Albumin 3.8 G/DL (3.4-5.0) Globulin 3.8 g/dL Albumin/Globulin Ratio 1.0 (1.0-2.7) Lipase 86 U/L (73-393) Urine Color Pale yellow Urine Appearance Clear Urine pH 7 (4.5-8.0) Urine Specific [place] 1.010 (1.005-1.035) Urine Protein Negative (NEGATIVE) Urine Glucose (UA) 4+ (NEGATIVE) Urine Ketones Negative (NEGATIVE) Urine Blood Negative (NEGATIVE) Urine Nitrite Negative (NEGATIVE) Urine Bilirubin Negative (NEGATIVE) Urine Urobilinogen Normal MG/DL (0.0-1.0) Urine Leukocyte Esterase Negative (NEGATIVE) Urine Opiates Screen Negative (NEGATIVE) Urine Barbiturates Screen Negative (NEGATIVE) Phencyclidine (PCP) Screen Negative (NEGATIVE) Urine Amphetamines Screen Negative (NEGATIVE) Urine Benzodiazepines Screen Negative (NEGATIVE) Urine Cocaine Screen Negative (NEGATIVE) Urine Marijuana (THC) Screen Negative (NEGATIVE) EKG Diagnostic Results Rate: tachycardiac Rhythm: NSR ST Segments: no acute changes Rhythm Strip Diag. Results EP Interpretation: yes Rhythm: NSR - 94, no PVC's, no ectopy Last Vital Signs Date Time Temp Pulse Resp B/P (MAP) Pulse Ox O2 Delivery O2 Flow Rate FiO2 07/10/18 03:17 99.1 106 14 170/100 99 Room Air 99.1 Status: improved Disposition: ADMITTED INPATIENT Condition: Serious Referrals: NOT CHOSEN IPA/,REFERRING (PCP) Billy Nolan MD Jul 10, 2018 03:53
[2018-07-10 04:23] LABS: ANION GAP 10 mmol/L (5-15); BLOOD UREA NITROGEN 9 mg/dL (7-18); CALCIUM 9.7 MG/DL (8.5-10.1); CARBON DIOXIDE 28 MMOL/L (21-32); CHLORIDE 95 MMOL/L (98-107); CREATININE 1.1 MG/DL (0.55-1.30); POTASSIUM 3.8 MMOL/L (3.5-5.1); SODIUM 133 MMOL/L (136-145)
[2018-07-10 04:30] VITALS: BP 156/95
[2018-07-10] MEDS ORDERED: Albuterol/Ipratropium 3ml neb HHN ONE (04:30)
[2018-07-10 04:36] LABS: ALANINE AMINOTRANSFERASE 46 U/L (12-78); ALBUMIN 3.8 G/DL (3.4-5.0); ALKALINE PHOSPHATASE 156 U/L (46-116); ASPARTATE AMINO TRANSFERASE 35 U/L (15-37); BILIRUBIN,TOTAL 0.5 MG/DL (0.2-1.0); CKMB 5.2 NG/ML (0.0-3.6); CREATINE KINASE 652 U/L (26-308)
[2018-07-10 04:41] LABS: APPEARANCE,URINE CLEAR; BILIRUBIN, URINE NEGATIVE (NEGATIVE); COLOR,URINE PALE YELLOW; GLUCOSE, URINE (UA) 4+ (NEGATIVE); KETONES,URINE NEGATIVE (NEGATIVE); LEUKOCYTE ESTERASE ,URINE NEGATIVE (NEGATIVE); NITRITE,URINE NEGATIVE (NEGATIVE); PH,URINE 7 (4.5-8.0); PROTEIN,URINE NEGATIVE (NEGATIVE); UROBILINOGEN,URINE NORMAL MG/DL (0.0-1.0)
[2018-07-10] MEDS ORDERED: METFORMIN HCL500 M1 ORAL (04:48)
[2018-07-10] MEDS ORDERED: antihypertensive (04:48)
[2018-07-10 05:16] VITALS: BP 188/104
[2018-07-10 06:04] VITALS: BP 155/85
[2018-07-10 08:00] VITALS: BP 131/67
[2018-07-10] MEDS ORDERED: GlipiZIDE 5mg tab ORAL SCH (09:00)
[2018-07-10] MEDS ORDERED: metFORMIN 500mg tab ORAL SCH ×2 (09:00→16:30)
--- NOTE | 2018-07-10 09:39 | Diagnostic Imaging Report ---
Indication: Shortness of breath Technique: One view of the chest Comparison: 05/20/2018 Findings: No acute infiltrates, effusions, or congestion. Tortuous calcified aorta. Normal heart size. Upper mediastinum unremarkable. No significant interim change Impression: No acute process.
[2018-07-10] MEDS ORDERED: NovoLOG Insulin Flexpen SUBQ SCH ×2 (11:30→16:30)
[2018-07-10 12:00] VITALS: BP 142/75
--- NOTE | 2018-07-10 12:21 | Cardiac Electrophysiology PN ---
Subjective Subjective [id number] Objective Last 24 Hour Vital Signs Date Time Temp Pulse Resp B/P (MAP) Pulse Ox O2 Delivery O2 Flow Rate FiO2 07/10/18 08:00 97.7 97 20 131/67 (88) 99 97.7 07/10/18 07:58 Room Air 07/10/18 06:04 111 07/10/18 06:04 96.8 89 22 155/85 (108) 97 96.8 07/10/18 05:54 99.1 19 188/104 100 Room Air 21 99.1 07/10/18 05:17 188/104 07/10/18 05:16 188/104 07/10/18 04:42 90 19 100 Room Air 21 07/10/18 04:40 21 07/10/18 04:30 98 20 156/95 100 Room Air 07/10/18 04:29 92 14 100 Room Air 21 07/10/18 03:17 99.1 106 14 170/100 99 Room Air 99.1 Intake and Output 07/09/18 07/10/18 19:00 07:00 # Voids 1 Laboratory Tests Test 07/10/18 03:35 07/10/18 04:33 07/10/18 04:59 07/10/18 07:00 White Blood Count 5.9 K/UL (4.8-10.8) Red Blood Count 4.36 M/UL (4.70-6.10) L Hemoglobin 14.6 G/DL (14.2-18.0) Hematocrit 42.0 % (42.0-52.0) Mean Corpuscular Volume 96 FL (80-99) Mean Corpuscular Hemoglobin 33.4 PG (27.0-31.0) H Mean Corpuscular Hemoglobin Concent 34.6 G/DL (32.0-36.0) Red Cell Distribution Width 11.6 % (11.6-14.8) Platelet Count 234 K/UL (150-450) Mean Platelet Volume 6.9 FL (6.5-10.1) Neutrophils (%) (Auto) 60.7 % (45.0-75.0) Lymphocytes (%) (Auto) 29.3 % (20.0-45.0) Monocytes (%) (Auto) 6.9 % (1.0-10.0) Eosinophils (%) (Auto) 2.3 % (0.0-3.0) Basophils (%) (Auto) 0.8 % (0.0-2.0) Sodium Level 133 MMOL/L (136-145) L Potassium Level 3.8 MMOL/L (3.5-5.1) Chloride Level 95 MMOL/L (98-107) L Carbon Dioxide Level 28 MMOL/L (21-32) Anion Gap 10 mmol/L (5-15) Blood Urea Nitrogen 9 mg/dL (7-18) Creatinine 1.1 MG/DL (0.55-1.30) Estimat Glomerular Filtration Rate > 60 mL/min (>60) Glucose Level 488 MG/DL (74-106) H Lactic Acid Level 2.30 mmol/L (0.4-2.0) H 1.60 mmol/L (0.66-2.22) Calcium Level 9.7 MG/DL (8.5-10.1) Total Bilirubin 0.5 MG/DL (0.2-1.0) Aspartate Amino Transf (AST/SGOT) 35 U/L (15-37) Alanine Aminotransferase (ALT/SGPT) 46 U/L (12-78) Alkaline Phosphatase 156 U/L (46-116) H Total Creatine Kinase 652 U/L (26-308) H Creatine Kinase MB 5.2 NG/ML (0.0-3.6) H Creatine Kinase MB Relative Index 0.7 Troponin I 0.024 ng/mL (0.000-0.056) 0.038 ng/mL (0.000-0.056) Pro-B-Type Natriuretic Peptide 476 pg/mL (0-125) H Total Protein 7.6 G/DL (6.4-8.2) Albumin 3.8 G/DL (3.4-5.0) Globulin 3.8 g/dL Albumin/Globulin Ratio 1.0 (1.0-2.7) Lipase 86 U/L (73-393) Urine Color Pale yellow Urine Appearance Clear Urine pH 7 (4.5-8.0) Urine Specific [place] 1.010 (1.005-1.035) Urine Protein Negative (NEGATIVE) Urine Glucose (UA) 4+ (NEGATIVE) H Urine Ketones Negative (NEGATIVE) Urine Blood Negative (NEGATIVE) Urine Nitrite Negative (NEGATIVE) Urine Bilirubin Negative (NEGATIVE) Urine Urobilinogen Normal MG/DL (0.0-1.0) Urine Leukocyte Esterase Negative (NEGATIVE) Urine Opiates Screen Negative (NEGATIVE) Urine Barbiturates Screen Negative (NEGATIVE) Phencyclidine (PCP) Screen Negative (NEGATIVE) Urine Amphetamines Screen Negative (NEGATIVE) Urine Benzodiazepines Screen Negative (NEGATIVE) Urine Cocaine Screen Negative (NEGATIVE) Urine Marijuana (THC) Screen Negative (NEGATIVE) Eulogio Oakley MD Jul 10, 2018 12:21
[2018-07-10] MEDS ORDERED: Lexiscan 0.4mg/5ml syringe IV SCH (12:30)
--- NOTE | 2018-07-10 12:45 | Consultation ---
Consult Note Consult Note asked to eval at the request of Dr gordillo HPI Patient is a 67-year-old male who presented after increased generalized weakness. Patient gradual onset of symptoms. The patient reports having had been taking oral anti-diabetic medications however he had run out of his medications. The patient states that he is a smoker. He reports having some chest discomfort. This was intermittent in nature. The patient reportedly had been having normal urination. He denies any fever. The patient presents feeling somewhat weak all over. The patient was brought in by EMS No Known Allergies (Unverified , 05/20/18) Past Medical History: , DM, HTN, CAD Social History: Reports: smoking Past Medical History: No History, Except For Hx Cardiac Problems: Yes - HTN Hx Hypertension: Yes Hx Diabetes: Yes interviewed examined Assessment/Plan DM OOC Low Na due to high Glucose High Lactate on presentation elevated CPK Hydrate- BP and BS control lisinopril monitor CPK per orders per cardiology Yohannes Hall MD Jul 10, 2018 12:45
[2018-07-10] MEDS ORDERED: Lisinopril 10mg tab ORAL SCH (12:49)
[2018-07-10 13:57] VITALS: BP 142/75
--- NOTE | 2018-07-10 18:22 | Cardiology Report ---
APPROVED REPORT EXAM: Two-dimensional and M-mode echocardiogram with Doppler and color Doppler. INDICATION Chest Pain M-Mode DIMENSIONS IVSd1.3 (0.7-1.1cm)Left Atrium (MM)3.3 (1.6-4.0cm) LVDd4.5 (3.5-5.6cm)Aortic Root3.3 (2.0-3.7cm) PWd1.6 (0.7-1.1cm)Aortic Cusp Exc.1.8 (1.5-2.0cm) IVSs1.9 cm LVDs3.1 (2.5-4.0cm) PWs2.4 cm Normal left ventricular chamber size . Global LV hypokinesis. Left ventricular ejection fraction estimated to be 35-40%. No evidence of left ventricular hypertrophy . No evidence of pericardial effusion. All other cardiac chamber sizes are within normal limits. Focal aortic valve sclerosis with adequate cusp excursion. Thickened mitral valve leaflets with normal excursion. Mitral annulus and aortic root calcification. Pulmonic valve not well visualized. Normal tricuspid valve structure. IVC at normal size with physiologic collapse. A color flow and spectral Doppler study was performed and revealed: No aortic regurgitation. Mild mitral regurgitation. Mitral diastolic velocities suggest reduced left ventricular relaxation c/w mild LV diastolic dysfunction (Grade I ). Mild tricuspid regurgitation. Tricuspid systolic velocities suggests peak right ventricular systolic pressure of 19mmHg.
--- NOTE | 2018-07-10 18:58 | Cardiology Report ---
APPROVED REPORT EKG Measurement Heart [id number] 132P80 [id number] Sinus tachycardia Right atrial enlargement Septal infarct, age undetermined Abnormal ECG
[2018-07-10] MEDS ORDERED: Metoprolol 25mg tab ORAL SCH (21:00)
--- NOTE | 2018-07-10 21:00 | Consultation ---
DATE OF CONSULTATION: 07/10/2018 CARDIOLOGY CONSULTATION CONSULTING PHYSICIAN: Eulogio Oakley M.D. REFERRING PHYSICIAN: Brown Telles M.D. REASON FOR CONSULTATION: Hypertension, tachycardia, the patient with history of coronary artery disease. HISTORY OF PRESENT ILLNESS: The patient is a 67-year-old gentleman with history of hypertension, diabetes, and history of coronary artery disease with prior stent but he does not remember at which hospital he had it in and he states that it might have been at [facility]. The patient came to the emergency room with increasing generalized weakness. The patient stated that he ran out of his diabetes medication also and he currently smokes. He also states that he has some intermittent chest discomfort as well. The patient was admitted. Blood pressure was 170/100 and his sugar was in the 400 range. Cardiology consultation was obtained for further evaluation and management. PAST MEDICAL HISTORY: As mentioned above. FAMILY HISTORY: Noncontributory. SOCIAL HISTORY: He continues to smoke. Currently, he is homeless. REVIEW OF SYSTEMS: Negative other than what was mentioned in the history of present illness. PHYSICAL EXAMINATION: VITAL SIGNS: Blood pressure was as high as 180/104 and is currently 131/67, pulse is 97, and respirations 18. HEAD AND NECK: Showed no JVD. LUNGS: Clear. CARDIOVASCULAR: Regular S1 and S2 with no gallop or murmur. ABDOMEN: Soft. EXTREMITIES: No pitting edema. LABORATORY AND DIAGNOSTIC DATA: His labs show white count of 5.9, hemoglobin 14.6, hematocrit of 42, and platelet count 234,000. Sodium 133, potassium 3.8, BUN of 9, creatinine 1.1, and glucose 488. Lactic acid 2.3. Troponin negative x2. ASSESSMENT AND PLAN: 1. Chest pain. The patient was ruled out for myocardial infarction. EKG showed just sinus tachycardia with no acute ST-T wave abnormality, however, the risk factors of coronary artery disease including hypertension and diabetes, both are uncontrolled. We will schedule the patient for nuclear stress test when the patient is more stable. 2. Accelerated hypertension. We will start the patient on lisinopril 10 mg b.i.d., which is also beneficial in view of the patient's diabetes. 3. Uncontrolled diabetes with glucose of 400-[address] Gaston. 4. Coronary artery disease with prior stent placement. The patient is not sure at which hospital when he had it. We will start the patient on aspirin and keep him on low-dose beta-charles stents. Thank you very much, Dr. Telles, for allowing me to participate in the care of this patient. Please do not hesitate to contact me for any questions regarding my evaluation. Eulogio Oakley M.D. DR: TARI JOB#: [id number] CC:
--- NOTE | 2018-07-11 01:45 | History and Physical Report ---
DATE OF ADMISSION: 07/10/2018 HISTORY OF PRESENT ILLNESS: The patient is admitted for increasing chest pain, generalized weakness, and diabetes type 2, apparently on lot of medications for a couple of days. Sugar was also elevated. EKG showed sinus tachycardia. The patient also has elevated lactic acid. The patient is admitted for chest pain, rule out acute coronary syndrome. The patient does radiate to the left arm. The patient denies nausea, vomiting, or diarrhea. No palpitations. Denies diaphoresis. Denies shortness of breath. Denies orthopnea or cough. Denies fever or chills. PAST MEDICAL HISTORY: Significant for NIDDM, history of gout, and hypertension as well. The patient might have history of noncompliance. PAST SURGICAL HISTORY: The patient had right toe amputation about a month ago. MEDICATIONS: Glipizide, Lantus, metformin, Actos, and Tylenol. ALLERGIES: No known allergies. FAMILY HISTORY: Does have history of diabetes and hypertension. SOCIAL HISTORY: The patient has history of smoking, alcohol, and illicit drugs. REVIEW OF SYSTEMS: HEENT: Denies headaches. RESPIRATORY: Denies shortness of breath. Denies cough. CARDIOVASCULAR: Chest pain for 2 days. GASTROINTESTINAL: Denies nausea, vomiting, and diarrhea. EXTREMITIES: Denies any pain in the lower extremity. CENTRAL NERVOUS SYSTEMS: Denies change in vision or speech pattern. PHYSICAL EXAMINATION: VITAL SIGNS: Temperature is 99.1, pulse is 89, and blood pressure 155/85. HEENT: PERRLA. NECK: Supple. No lymphadenopathy. CHEST: Clear to auscultation. GASTROINTESTINAL: Soft, nontender, and nondistended. No organomegaly. EXTREMITIES: No edema. The patient has right toe amputation. NEUROLOGIC: Reflexes are equal on both sides. Sensory intact to light touch. LABORATORY DATA: WBC of 5.9, hemoglobin 14.6, and platelets of 234,000. Lactic acid of 2.3. Troponin is negative. ASSESSMENT AND PLAN: 1. Chest pain, rule out acute coronary syndrome. 2. Elevated blood sugar. I have asked Dr. Oakley, Dr. Gaston, Dr. Gregory, and Dr. Hlal to see the patient for the above-mentioned diagnoses and treatment and also for the removal of the stitches from the right toe amputation noncompliant, and has a poor hygiene in his legs as well. Brown Telles M.D. DR: MIRYAM JOB#: [id number] CC:
[2018-07-11] MEDS ORDERED: Lexiscan 0.4mg/5ml syringe IV SCH (06:00)
--- NOTE | 2018-07-11 07:05 | Discharge Summary ---
Discharge Summary Discharge Summary _ DATE OF ADMISSION: 07/10/2018 DATE OF DISCHARGE: 07/10/2018 CONSULTANTS: Dr. Eulogio Hall BRIEF HOSPITAL COURSE: Patient is a 67-year-old male, who presented to ED via EMS due to generalized weakness. Patient had gradual onset of symptoms. He reported taking oral antidiabetic medications, however recently run out of his medications. He was complaining of chest discomfort that was intermittent in nature. He is also a smoker. He denied any fever. He was generally feeling weak all over. He has medical history significant for diabetes mellitus, hypertension and coronary artery disease. On evaluation at ED, blood pressure was elevated to 170/100. Blood work showed glucose elevated to 488, troponin was 0.0204, BNP 476. He had an EKG that showed sinus tachycardia without acute ST to T wave changes. He was started on IV fluids and was given IV insulin. He was then admitted for evaluation of chest pain and uncontrolled diabetes mellitus. He was seen by front desk auxiliary. He was started on lisinopril 10 mg twice a day. He was given aspirin and low-dose beta charles. Troponins were monitored. Echocardiogram showed left ejection fraction 35-40%, no aortic regurgitation, mild mitral regurgitation, mild tricuspid regurgitation. He was seen by catalyst recovery operator. Patient had low sodium due to high glucose. He also had elevated lactate and CPK. He was given IV hydration. Patient was ordered stress test, however, refused. He left AGAINST MEDICAL ADVICE. FINAL DIAGNOSES: Chest pain, possible acute coronary syndrome Diabetes mellitus, out of control Accelerated hypertension Coronary artery disease with prior stent placement Hyponatremia due to high glucose Elevated lactate Elevated CPK DISPOSITION: Patient left AGAINST MEDICAL ADVICE. I have been assigned to dictate discharge summary on this account, and I was not involved in the patient's management. Bekah Her NP Jul 11, 2018 07:05
[2018-07-11] MEDS ORDERED: Aspirin EC 81mg tab ORAL SCH (09:00)
[2018-07-11] MEDS ORDERED: Lisinopril 10mg tab ORAL SCH ×2 (09:00)
== END 2018-07-10 15:00 | disposition left against medical advice (07) | DRG 198 ==
LOC: EDBD 03:17 → EMR 03:33 → 2E 04:30 → EDBEDREQ 04:33
DX: I24.9 Acute ischemic heart disease, unspecified (principal); E11.65 Type 2 diabetes mellitus with hyperglycemia; R07.9 Chest pain, unspecified; I10 Essential (primary) hypertension; I25.10 Atherosclerotic heart disease of native coronary artery without angina pectoris; Z95.5 Presence of coronary angioplasty implant and graft; E87.1 Hypo-osmolality and hyponatremia; F17.200 Nicotine dependence, unspecified, uncomplicated; Z59.0 Homelessness; Z79.4 Long term (current) use of insulin; M10.9 Gout, unspecified
CPT/HCPCS: 36415; 71045; 80053; 80307; 81003; 82550; 82553; 83605; 83690; 83880; 84484; 85025; 86140; 87040; 93005; 93306; 94640; J1815; J2785; J7620

== ENCOUNTER 2019-10-13 00:28 | Inpatient (IN) | payer MEDICARE, MEDICAID ==
[2019-10-13] VITALS (8 sets, daily range): BP systolic 127–147; BP diastolic 63–79
[~2019-10-13] VITALS: Ht 175.3 cm; Wt 67.1 kg
[~2019-10-13 00:28] MED LIST changes: +METFORMIN HCL500 M1 ORAL; +antihypertensive
[2019-10-13] MEDS ORDERED: Aspirin Baby 81mg ORAL ONE (00:45)
--- NOTE | 2019-10-13 01:06 | Emergency Room Report ---
History of Present Illness General Chief Complaint: Chest Pain Source: Patient Present Illness HPI Disclaimer: Please note that this report is being documented using LinguastatON technology. This can lead to erroneous entry secondary to incorrect interpretation by the dictating instrument. HPI: 68-year-old male with a history of CAD status post stenting, recent pneumothorax status post thoracostomy at [facility] last week presents for evaluation of cough, shortness of breath, chest pain and hematemesis. Patient states he has had a worsening cough for the past 4 days along with some chest discomfort in the center of his chest. Chest pain got worse while waiting for the bus and had worsening coughing episode causing some mild hemoptysis. He is complaining of a significant headache and light sensitivity. Does not know what medications he supposed to be taking since his discharge from [facility]. Patient has little insight into his medical conditions and medications and does not provide much history. Very uncooperative with history and exam. Continues to smoke. PMH: CAD, pneumothorax PSH: Multiple stents, thoracostomy Allergies: Denies Social Hx: Current smoker Allergies: Coded Allergies: No Known Allergies (Unverified , 05/20/18) Nursing Documentation-PMH Past Medical History: No History, Except For Hx Cardiac Problems: Yes - HTN, CP, VT Hx Hypertension: Yes Hx Diabetes: Yes Hx Cancer: No Hx Gastrointestinal Problems: No Hx Neurological Problems: No Review of Systems All Other Systems: negative except mentioned in HPI Physical Exam Vital Signs Date Time Temp Pulse Resp B/P (MAP) Pulse Ox O2 Delivery O2 Flow Rate FiO2 10/13/19 00:29 97.9 106 16 180/105 (130) 100 Room Air General: Awake and alert, no acute distress, hypertensive HEENT: NC/AT. EOMI. Neck: Supple, trachea midline Chest Wall: No tenderness, no deformity. Adhesive bandage over the right mid axillary line is intact and sealed Cardiovascular: Tachycardic. S1 and S2 normal. Resp: Equal breath sounds bilaterally. Normal work of breathing. No cough, wheezing or crackles appreciated Abdomen: Abdomen is soft, nondistended. Nontender Skin: Intact. No abrasions, laceration or rash over the exposed skin MSK: Normal tone and bulk. Moving all extremities. No obvious deformity. Neuro: Awake and alert. Mentating appropriately. Medical Decision Making Diagnostic Impression: Primary Impression: Pneumonia Additional Impression: Elevated troponin ER Course 68-year-old male with history of CAD and reported recent pneumothorax status post thoracostomy presents for evaluation of chest pain and shortness of breath. Differential includes but is not limited to ACS, pneumonia, pneumothorax, pneumomediastinum, pulmonary vascular injury, esophageal injury, bronchitis, viral syndrome, musculoskeletal chest pain. We will start broad metabolic and cardiac work-up. Patient will be sent for x-ray and CT scan. He has equal breath sounds and has had no coughing, no hypoxia and arrived with stable vital signs. Laboratory Tests Test 10/13/19 00:55 White Blood Count 7.0 K/UL (4.8-10.8) Red Blood Count 4.88 M/UL (4.70-6.10) Hemoglobin 16.1 G/DL (14.2-18.0) Hematocrit 46.2 % (42.0-52.0) Mean Corpuscular Volume 95 FL (80-99) Mean Corpuscular Hemoglobin 33.1 PG (27.0-31.0) H Mean Corpuscular Hemoglobin Concent 34.9 G/DL (32.0-36.0) Red Cell Distribution Width 11.0 % (11.6-14.8) L Platelet Count 216 K/UL (150-450) Mean Platelet Volume 6.2 FL (6.5-10.1) L Neutrophils (%) (Auto) 73.6 % (45.0-75.0) Lymphocytes (%) (Auto) 12.2 % (20.0-45.0) L Monocytes (%) (Auto) 11.1 % (1.0-10.0) H Eosinophils (%) (Auto) 1.1 % (0.0-3.0) Basophils (%) (Auto) 2.1 % (0.0-2.0) H Sodium Level 137 MMOL/L (136-145) Potassium Level 4.4 MMOL/L (3.5-5.1) Chloride Level 97 MMOL/L (98-107) L Carbon Dioxide Level 27 MMOL/L (21-32) Anion Gap 13 mmol/L (5-15) Blood Urea Nitrogen 12 mg/dL (7-18) Creatinine 0.9 MG/DL (0.55-1.30) Estimate Glomerular Filtration Rate > 60 mL/min (>60) Glucose Level 255 MG/DL (74-106) H Calcium Level 9.7 MG/DL (8.5-10.1) Total Bilirubin 0.7 MG/DL (0.2-1.0) Aspartate Amino Transferase (AST) 54 U/L (15-37) H Alanine Aminotransferase (ALT) 55 U/L (12-78) Alkaline Phosphatase 119 U/L (46-116) H Troponin I 0.070 ng/mL (0.000-0.056) Pro-B-Type Natriuretic Peptide 1241 pg/mL (0-125) H Total Protein 8.1 G/DL (6.4-8.2) Albumin 3.8 G/DL (3.4-5.0) Globulin 4.3 g/dL Albumin/Globulin Ratio 0.9 (1.0-2.7) L EKG Diagnostic Results EKG Time: 00:40 Rate: normal Rhythm: NSR ST Segments: no acute changes Other Impression Sinus rhythm, normal axis, normal intervals, no ST segment changes. Occasional PACs. Rhythm Strip Diag. Results Rhythm Strip Time: 00:40 EP Interpretation: yes Rate: 90s Rhythm: NSR, no PVC's, no ectopy Chest X-Ray Diagnostic Results Chest X-Ray Diagnostic Results : Chest X-Ray Ordered: Yes # of Views/Limited/Complete: 1 View Indication: Chest Pain EP Interpretation: Yes Interpretation: no consolidation, no effusion, no pneumothorax Impression: No acute disease Electronically Signed by: Electronically signed by Dr. Farrukh Castrejon CT/MRI/US Diagnostic Results CT/MRI/US Diagnostic Results : Impression Preliminary Findings Only See Final Report For Complete Findings CT CHEST Without Contrast: No pneumothorax or pleural effusion. Consolidation and groundglass within the right upper lobe with additional areas of nodularity in the left lower lobe. Findings are favored to represent multifocal infection. Severe coronary artery calcifications. Radiologist: Obinna Amor MD Study ready at 01:47 and initial results transmitted at 02:07 Reevaluation Time: 02:14 Last Vital Signs Date Time Temp Pulse Resp B/P (MAP) Pulse Ox O2 Delivery O2 Flow Rate FiO2 10/13/19 00:29 97.9 106 16 180/105 (130) 100 Room Air Reevaluation Impression Labs show a normal white count at 7.0 without a shift. Chemistry panel unremarkable. Glucose elevated to 55. Troponin elevated at 0.070 may be in line with the patient's CHF given his elevated BNP at 1241 though his previous levels have never been this high. EKG is nonischemic. Chest x-ray did not show an obvious pneumothorax however a CT was obtained to definitively rule out given his recent history. It shows consolidation and groundglass opacities in the right and left upper lobe. Patient was treated with cefepime. Will require admission. Second Trop pending. He is resting comfortably. Farrukh Castrejon MD Oct 13, 2019 01:06
[2019-10-13 01:14] LABS: BASOPHILS % (AUTO) 2.1 % (0.0-2.0); EOSINOPHILS % (AUTO) 1.1 % (0.0-3.0); HEMATOCRIT 46.2 % (42.0-52.0); HEMOGLOBIN 16.1 G/DL (14.2-18.0); LYMPHOCYTES % (AUTO) 12.2 % (20.0-45.0); MEAN CORPUSCULAR VOLUME 95 FL (80-99); MONOCYTES % (AUTO) 11.1 % (1.0-10.0); NEUTROPHILS % (AUTO) 73.6 % (45.0-75.0); PLATELET COUNT 216 K/UL (150-450); RED BLOOD COUNT 4.88 M/UL (4.70-6.10)
[2019-10-13] MEDS ORDERED: HYDROcodone/Acetamin 7.5/325 tab ORAL ONE (01:15)
--- NOTE | 2019-10-13 01:18 | NUR ---
ED Nurse Note: Pt brought in by [facility] from home c/o chest pain for past couple of days with headache, pt states he was at [facility] and the [facility] told pt that his lung collapsed and they insert needled. noted pressure dressing on the right lateral side of chest. pt AA&ox4, gcs=15, skin warm and dry, resp even and unlabored on RA, -n/v/d. will cont monitor. sinus rhythm on cardiac cath lab manager at this time, vss. safety measures in place, blanket provided for comfort. Addendum: 10/13/19 at 0631 by [facility] ED Nurse Note: Pt brought in by [facility] from streets c/o chest pain for past couple of days with headache, pt states he was at [facility] and the [facility] told pt that his lung collapsed and they insert needled. noted pressure dressing on the right lateral side of chest. pt AA&ox4, gcs=15, skin warm and dry, resp even and unlabored on RA, -n/v/d. will cont monitor. sinus rhythm on cardiac cath lab manager at this time, vss. safety measures in place, blanket provided for comfort.
[2019-10-13 01:30] LABS: ANION GAP 13 mmol/L (5-15); BLOOD UREA NITROGEN 12 mg/dL (7-18); CALCIUM 9.7 MG/DL (8.5-10.1); CARBON DIOXIDE 27 MMOL/L (21-32); CHLORIDE 97 MMOL/L (98-107); CREATININE 0.9 MG/DL (0.55-1.30); POTASSIUM 4.4 MMOL/L (3.5-5.1); SODIUM 137 MMOL/L (136-145)
--- NOTE | 2019-10-13 01:30 | NUR ---
ED Nurse Note: pt states he takes medication for high blood pressure and diabetes, pt states he takes glipizide and metformin but unable to the dose. pt states he is noncompliant with medication because pt is homeless and it is difficult to take the medications when he is on the streets. pt states he occasionally stays with the sister.
[2019-10-13 01:41] LABS: ALANINE AMINOTRANSFERASE 55 U/L (12-78); ALBUMIN 3.8 G/DL (3.4-5.0); ALBUMIN/GLOBULIN RATIO 0.9 (1.0-2.7); ALKALINE PHOSPHATASE 119 U/L (46-116); ASPARTATE AMINO TRANSFERASE 54 U/L (15-37); BILIRUBIN,TOTAL 0.7 MG/DL (0.2-1.0)
--- NOTE | 2019-10-13 02:08 | Diagnostic Imaging Report ---
Clinical Indication: Chest pain Technique: Spiral acquisitions obtained through the chest. No IV contrast utilized, reason not stated. Multiplanar reconstructions generated. Total dose length product 668 mGycm. CTDIvol(s) 15 mGy. Dose reduction achieved using automated exposure control Comparison: none Findings: Infiltrate is seen in the anterior inferior right upper lobe. There are bilateral basilar posterior dependent atelectatic changes. Left lower lobe demonstrates some patchy consolidation and nodularity in addition to this. The left upper lobe is clear. No effusions. The heart size is normal. No pericardial effusion. There are fairly dense coronary artery ossifications demonstrated. The ascending thoracic aorta is somewhat ectatic but not frankly aneurysmal. No mediastinal or hilar mass or adenopathy. The thyroid is unremarkable. No axillary or chest wall mass or adenopathy. The included upper abdominal anatomy demonstrates possible mild hepatomegaly. Impression: Right perihilar upper lobe and left lower lobe infiltrates, likely pneumonia Posterior dependent atelectatic changes Coronary artery calcifications Possible hepatomegaly This agrees with the preliminary interpretation provided overnight by [facility] teleradiology service. The CT scanner at [facility] is accredited by the [employer] and the scans are performed using protocols designed to limit radiation exposure to as low as reasonably achievable to attain images of sufficient resolution adequate for diagnostic evaluation.
[2019-10-13] MEDS ORDERED: Cefepime HCl 2 GM in D5W 55 ML IVPB ONE (02:15)
--- NOTE | 2019-10-13 02:31 | NUR ---
ED Nurse Note: pt resting at this time, extra blanket provided per pt request, vss, will cont monitor. safety measures in place.
--- NOTE | 2019-10-13 04:48 | NUR ---
ED Nurse Note: pt currently awake, vss, noted pt warm to touch, rectal temp 99.8F noted. ERMD notified. will cont monitor.
--- NOTE | 2019-10-13 04:52 | NUR ---
ED Nurse Note: contacted [facility] for jim thorpe bed.
--- NOTE | 2019-10-13 05:00 | NUR ---
ED Nurse Note: pt transferred to [place] bed, resting comfortably, vss, will cont monitor. pt states pain is better. pt advised to notify staff if needed assist or pain worsens.
--- NOTE | 2019-10-13 07:05 | NUR ---
ED Nurse Note: Recieved pt and endorsed care from RENETTA Huertas.
--- NOTE | 2019-10-13 07:07 | NUR ---
HAND-OFF: Report given to RENETTA dawn and Rachid and endorsed care. Endorsed urine specimen and sputum culture.
--- NOTE | 2019-10-13 07:15 | NUR ---
ED Nurse Note: Pt found resting comfortably in bed at this time. Pt able to urinate at bedside with urinal, urine specimen sent to lab. Pt aaox4, vital signs stable as charted. Pt given breakfast tray. 22g IV on right AC patent and intact. Will continue to monitor.
--- NOTE | 2019-10-13 07:30 | NUR ---
ED Nurse Note: Unable to obtain sputum at this time. Will endorse order to RENETTA Whiting.
--- NOTE | 2019-10-13 07:40 | NUR ---
ED Nurse Note: Report given to RENETTA Whiting for inpatient admit.
--- NOTE | 2019-10-13 07:53 | NUR ---
ED Nurse Note: Pt taken to tele unit with 1 technical administrator and 1 RN, connected to satellite project site monitor. Pt stable.
--- NOTE | 2019-10-13 08:24 | NUR ---
NURSE NOTES: Pt arrived to the floor, pt Ox4 calm and cooperative, IV intact and patent, pt complains of chest pain when laying flat and when he lift his hands above his shoulders, Pain level 5/10, CT chest no contrast performed and resulted= severe CAD with calcifications, drug screen positive for cocaine, UA collected but not the sputum, Labs w/in WNL, troponin slightly elevated at 0.079, pt stated he last snorted cocaine two weeks ago, call light at bedside, and pt instructed to call nurse if he needs to use the restroom, diet order in, no s/s of distress or sob noted.
[2019-10-13] MEDS ORDERED: Guaifenesin/DM 10ml syrup ORAL PRN (09:30)
[2019-10-13] MEDS ORDERED: HYDROcodone/Acetamin 5/325 tab ORAL PRN (09:30)
[2019-10-13] MEDS: Vancomycin 1gm in D5W 275ml IVPB SCH ×2 (10:55→21:41)
--- NOTE | 2019-10-13 11:43 | Diagnostic Imaging Report ---
Indication: Cough Technique: One view of the chest Comparison: 07/10/2018 Findings: No acute infiltrates, effusions, or congestion. Infiltrates demonstrated on subsequent CT scan are not evident radiographically. Tortuous calcified aorta. Normal heart size. Upper mediastinum unremarkable. No significant interim change Impression: No acute process. Please refer to subsequent CT scan report, however
[2019-10-13] MEDS ORDERED: NovoLOG Insulin Flexpen SUBQ SCH (11:50)
[2019-10-13] MEDS: metFORMIN 500mg tab ORAL SCH ×2 (12:04→16:59)
[2019-10-13] MEDS: NovoLOG Insulin Flexpen SUBQ SCH ×3 (12:05→21:00)
--- NOTE | 2019-10-13 14:03 | NUR ---
CARDIOLOGY: 2-D ECHO REPORT Normal left ventricular chamber size. Mid to distal anteroseptal wall hypokinesis . Left ventricular ejection fraction estimated to be 40-45%. All other cardiac chamber sizes are within normal limits. Focal aortic valve sclerosis with adequate cusp excursion. Thickened mitral valve leaflets with normal excursion. Mitral annulus and aortic root calcification. Normal pulmonic valve structure. Normal tricuspid valve structure. IVC at normal size with physiologic collapse. A color flow and spectral Doppler study was performed and revealed: Moderate mitral regurgitation. Mitral diastolic velocities suggest reduced left ventricular relaxation c/w mild LV diastolic dysfunction (Grade I ). Trace tricuspid regurgitation. Tricuspid systolic velocities suggests peak right ventricular systolic pressure of 15 mmHg.
--- NOTE | 2019-10-13 15:30 | Consultation ---
DATE OF CONSULTATION: 10/13/2019 INFECTIOUS DISEASES CONSULTATION CONSULTING PHYSICIAN: Norma Garcia M.D. REFERRING PHYSICIAN: Percy Cuevas M.D. REASON FOR CONSULTATION: Pneumonia. HISTORY OF PRESENTING ILLNESS: This is a 68-year-old gentleman with history of diabetes, coronary artery disease, status post stent placement who recently had a pneumothorax and had a chest tube placement at [facility] who now comes in with fever, cough, shortness of breath along with pain on coughing. He was found to have a pneumonia and an Infectious Diseases consultation has been obtained for antibiotics. PAST MEDICAL HISTORY: 1. History of diabetes. 2. History of coronary artery disease, status post stent placement. 3. History of pneumothorax, status post chest tube placement. SOCIAL HISTORY: He is a smoker. He drinks alcohol. He cocaine. He has history of intravenous drug use. FAMILY HISTORY: Positive for heart disease in his father. REVIEW OF SYSTEMS: RESPIRATORY: He has fever and chills. He has cough. He has shortness of breath. He complains of chest pain. CARDIAC: He has chest pain. No palpitations. No dizziness. No syncope. GASTROINTESTINAL: No nausea. No vomiting. No abdominal pain or diarrhea. MEDICATIONS: As an inpatient, he is on aspirin, subcutaneous heparin, cefepime, metformin, insulin, IV vancomycin, Mcintire, Tylenol, and Robitussin. ALLERGIES: No known drug allergies. PHYSICAL EXAMINATION: VITAL SIGNS: Temperature of 98.1, T-max of 99.8, pulse of 96, respiratory rate of 16, blood pressure 129/65, O2 saturation of 100%. HEENT: Pupils equally reactive to light and accommodation. Mouth appears clean without thrush. NECK: Supple. No adenopathy. No JVD. CARDIOVASCULAR: Regular rate and rhythm. No murmurs. LUNGS: Clear to auscultation bilaterally. No crackles. No wheezes. ABDOMEN: Soft and nontender. No organomegaly. EXTREMITIES: No cyanosis, no clubbing, no edema. LABORATORY AND DIAGNOSTIC DATA: White count of 7, hemoglobin 16.1, hematocrit 46.2, MCV 95, platelet count of 216,000 with neutrophils of 73%. Sodium 137, potassium 4.4, chloride 97, bicarb 27, BUN 12, creatinine 0.9, glucose 255, calcium 9.2, total bilirubin 0.7. AST 54, ALT 55, alkaline phosphatase 119. Troponin 0.07. Beta-natriuretic peptide 1241. Total protein 8.1. Albumin 3.8. CT chest showing consolidation and ground-glass within the right upper lobe with additional areas of nodularity in the left lower lobe. ASSESSMENT: This is a 68-year-old gentleman with history of diabetes, coronary artery disease who recently had a pneumothorax at [facility] and underwent a chest tube placement and now was found to have: 1. Bilateral pneumonia. 2. Diabetes. 3. Coronary artery disease. PLAN: 1. Continue IV vancomycin and cefepime. 2. We will order sputum for Gram stain and culture. 3. We will order HIV testing. 4. We will follow up cultures and adjust antibiotics accordingly. I would like to thank, Dr. Cuevas, for this consultation. Norma Garcia M.D. DR: CHAUNCEY JOB#: [id number] CC: Percy Cuevas M.D. [facility]
--- NOTE | 2019-10-13 16:20 | NUR ---
CASE MANAGEMENT:REVIEW 68 YR OLD MALE FROM STREET CC: CHEST PAIN SI: CHEST PAIN. ELEVATED TROPONIN. PNA 99.8 106 16 180/105 100% ON RA TROPONIN(+) 0.070 AND 0.079 IS: ASA PO PERCOCET PO IV CEFEPIME CT CHEST : TO TELEMETRY INTERQUAL CRITERIA MET
[2019-10-13] MEDS: Cefepime HCl 1 GM in D5W 55 ML IVPB SCH (16:30)
--- NOTE | 2019-10-13 19:15 | NUR ---
NURSE NOTES: Got report from Henok JACKSON. Pt in stable condition. Denies any pain. No s/s of distress or discomfort noted. Pt resting in bed comfortably. Bed in low and locked position, call light within reach, bedside table within reach. Continue to monitor.
[2019-10-14] VITALS: BP 141/88
[2019-10-14] MEDS: Cefepime HCl 1 GM in D5W 55 ML IVPB SCH ×2 (02:40→15:00)
[2019-10-14 04:00] VITALS: BP 145/86
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
[2019-10-14] MEDS: metFORMIN 500mg tab ORAL SCH ×3 (06:02→16:45)
[2019-10-14] MEDS: NovoLOG Insulin Flexpen SUBQ SCH ×4 (06:02→20:23)
--- NOTE | 2019-10-14 07:10 | NUR ---
NURSE NOTES: Received report from Maycol JACKSON. Pt alert and orientedx3 and able to make needs known. Denied pain. Denied SOB. IV RAC 22G SL patent and asymptomatic. Bed in lowest position and locked. Side rails x2 up for safety. Pt ambulated steady. Call light within easy reach. Bed in lowest position and locked. Will continue to plan of care.
--- NOTE | 2019-10-14 07:10 | NUR ---
HAND-OFF: Report given to Min RN.
[2019-10-14 07:25] LABS: BASOPHILS % (AUTO) 1.9 % (0.0-2.0); EOSINOPHILS % (AUTO) 1.9 % (0.0-3.0); HEMATOCRIT 40.6 % (42.0-52.0); HEMOGLOBIN 14.1 G/DL (14.2-18.0); LYMPHOCYTES % (AUTO) 18.7 % (20.0-45.0); MEAN CORPUSCULAR VOLUME 96 FL (80-99); MONOCYTES % (AUTO) 12.5 % (1.0-10.0); PLATELET COUNT 221 K/UL (150-450); RED BLOOD COUNT 4.24 M/UL (4.70-6.10); RED CELL DISTRIBUTION WIDTH 11.1 % (11.6-14.8); WHITE BLOOD COUNT 6.3 K/UL (4.8-10.8)
[2019-10-14 08:00] VITALS: BP 146/71
[2019-10-14 08:04] LABS: ALANINE AMINOTRANSFERASE 38 U/L (12-78); ALBUMIN/GLOBULIN RATIO 0.8 (1.0-2.7); ALKALINE PHOSPHATASE 100 U/L (46-116); ANION GAP 6 mmol/L (5-15); ASPARTATE AMINO TRANSFERASE 27 U/L (15-37); BILIRUBIN,TOTAL 0.4 MG/DL (0.2-1.0); BLOOD UREA NITROGEN 16 mg/dL (7-18); CARBON DIOXIDE 30 MMOL/L (21-32); CHLORIDE 100 MMOL/L (98-107); CHOLESTEROL 204 MG/DL (< 200); CREATINE KINASE 379 U/L (26-308); CREATININE 1.1 MG/DL (0.55-1.30); HDL CHOLESTEROL 67 MG/DL (40-60); POTASSIUM 4.2 MMOL/L (3.5-5.1); SODIUM 136 MMOL/L (136-145); TRIGLYCERIDES 118 MG/DL (30-150)
--- NOTE | 2019-10-14 08:33 | NUR ---
NURSE NOTES: Pt asks for taking shower today. Paged Dr. Cuevas and awaiting for reply.
[2019-10-14] MEDS ORDERED: Heparin 5000 units/ml inj SUBQ SCH (09:00)
[2019-10-14] MEDS ORDERED: Aspirin Baby 81mg ORAL SCH (09:00)
--- NOTE | 2019-10-14 10:24 | Infectious Diseases Prog Note ---
Assessment/Plan Assessment/Plan antibiotics : vancomycin iv, cefepime A 1. pneumonia 2. CAD 3. diabetes mellitus 4. pneumothorax resolved P 1. continue vancomycin iv, cefepime 2. will follow up cultures Subjective Constitutional: Denies: fever, chills Respiratory: Reports: shortness of breath, dry cough Cardiovascular: Reports: chest pain Gastrointestinal/Abdominal: Denies: nausea, vomiting, diarrhea Allergies: Coded Allergies: No Known Allergies (Unverified , 05/20/18) Objective Vital Signs Last 24 Hour Vital Signs Date Time Temp Pulse Resp B/P (MAP) Pulse Ox O2 Delivery O2 Flow Rate FiO2 10/14/19 09:00 Room Air 10/14/19 08:00 98.1 86 20 146/71 (96) 100 10/14/19 08:00 81 10/14/19 04:00 82 10/14/19 04:00 97.0 92 18 145/86 (105) 95 92 10/14/19 00:02 Room Air 10/14/19 00:00 98.1 95 18 141/88 (105) 98 95 10/14/19 00:00 87 10/13/19 21:00 Room Air 10/13/19 20:00 99.8 94 19 142/78 (99) 98 94 10/13/19 20:00 84 10/13/19 16:00 99.3 83 19 136/79 (98) 99 83 10/13/19 15:05 92 10/13/19 12:32 98.1 80 20 127/63 (84) 96 80 10/13/19 12:22 90 10/13/19 11:30 Room Air Height (Feet): 5 Height (Inches): 9.00 Weight (Pounds): 144 Respiratory/Chest: lungs clear Cardiovascular: normal rate, regular rhythm, no gallop/murmur Abdomen: soft, non tender Extremities: no edema Microbiology Date/Time Source Procedure Growth Status 10/13/19 04:45 Rectum Received Laboratory Tests Test 10/14/19 06:20 White Blood Count 6.3 K/UL (4.8-10.8) Red Blood Count 4.24 M/UL (4.70-6.10) L Hemoglobin 14.1 G/DL (14.2-18.0) L Hematocrit 40.6 % (42.0-52.0) L Mean Corpuscular Volume 96 FL (80-99) Mean Corpuscular Hemoglobin 33.2 PG (27.0-31.0) H Mean Corpuscular Hemoglobin Concent 34.7 G/DL (32.0-36.0) Red Cell Distribution Width 11.1 % (11.6-14.8) L Platelet Count 221 K/UL (150-450) Mean Platelet Volume 6.5 FL (6.5-10.1) Neutrophils (%) (Auto) 65.0 % (45.0-75.0) Lymphocytes (%) (Auto) 18.7 % (20.0-45.0) L Monocytes (%) (Auto) 12.5 % (1.0-10.0) H Eosinophils (%) (Auto) 1.9 % (0.0-3.0) Basophils (%) (Auto) 1.9 % (0.0-2.0) Sodium Level 136 MMOL/L (136-145) Potassium Level 4.2 MMOL/L (3.5-5.1) Chloride Level 100 MMOL/L (98-107) Carbon Dioxide Level 30 MMOL/L (21-32) Anion Gap 6 mmol/L (5-15) Blood Urea Nitrogen 16 mg/dL (7-18) Creatinine 1.1 MG/DL (0.55-1.30) Estimat Glomerular Filtration Rate > 60 mL/min (>60) Glucose Level 300 MG/DL (74-106) H Calcium Level 9.0 MG/DL (8.5-10.1) Phosphorus Level 3.0 MG/DL (2.5-4.9) Total Bilirubin 0.4 MG/DL (0.2-1.0) Aspartate Amino Transf (AST/SGOT) 27 U/L (15-37) Alanine Aminotransferase (ALT/SGPT) 38 U/L (12-78) Alkaline Phosphatase 100 U/L (46-116) Total Creatine Kinase 379 U/L (26-308) H Troponin I 0.021 ng/mL (0.000-0.056) Total Protein 6.8 G/DL (6.4-8.2) Albumin 3.0 G/DL (3.4-5.0) L Globulin 3.8 g/dL Albumin/Globulin Ratio 0.8 (1.0-2.7) L Triglycerides Level 118 MG/DL (30-150) Cholesterol Level 204 MG/DL (< 200) H LDL Cholesterol 110 mg/dL (<100) H HDL Cholesterol 67 MG/DL (40-60) H Cholesterol/HDL Ratio 3.0 (3.3-4.4) L Thyroid Stimulating Hormone (TSH) 1.699 uiU/mL (0.358-3.740) Current Medications Medications (Trade) Dose Ordered Sig/Robbie Route PRN Reason Start Time Stop Time Status Last Admin Dose Admin Acetaminophen (Tylenol) 650 mg Q6H PRN ORAL Mild Pain/Temp > 100.5 10/13/19 09:30 11/12/19 09:29 Acetaminophen/ Hydrocodone Bitart ([place] 5/325) 1 tab Q6H PRN ORAL For Pain 10/13/19 09:30 10/20/19 09:29 Aspirin (ASA) 81 mg DAILY ORAL 10/14/19 09:00 11/13/19 08:59 10/14/19 08:22 Cefepime HCl 1 gm/ Dextrose 55 ml @ 110 mls/hr Q12H IVPB 10/13/19 15:00 10/20/19 14:59 10/13/19 16:30 Dextrose (Dextrose 50%) 25 ml Q30M PRN IV Hypoglycemia 10/13/19 09:30 11/12/19 09:29 Dextrose (Dextrose 50%) 50 ml Q30M PRN IV Hypoglycemia 10/13/19 09:30 11/12/19 09:29 Guaifenesin/ Dextromethorphan (Robitussin DM Syrup) 10 ml Q4H PRN ORAL For Cough 10/13/19 09:30 11/12/19 09:29 Heparin Sodium (Porcine) (Heparin 5000 units/ml) 5,000 units EVERY 12 HOURS SUBQ 10/14/19 09:00 11/13/19 08:59 10/14/19 08:22 Insulin Aspart (NovoLOG) BEFORE MEALS AND HS SUBQ 10/13/19 11:30 11/12/19 11:29 10/13/19 17:00 Metformin HCl (Glucophage) 500 mg TIAC ORAL 10/13/19 11:30 11/12/19 11:29 10/13/19 16:59 Vancomycin HCl (Vanco rx to dose) 1 ea DAILY PRN MISC Per rx protocol 10/13/19 09:15 11/12/19 09:14 Vancomycin HCl 1 gm/Dextrose 275 ml @ 183.708 mls/hr Q12H IVPB 10/13/19 10:00 10/18/19 09:59 10/13/19 10:55 Norma Garcia MD Oct 14, 2019 10:24
[2019-10-14] MEDS ORDERED: OXYCODONE H5 MG/5 ML ORAL (10:47)
[2019-10-14] MEDS: Vancomycin 1gm in D5W 275ml IVPB SCH (10:59)
--- NOTE | 2019-10-14 11:30 | NUR ---
HAND-OFF: Report given to Uzma BURNS.Pt remains stable.
[2019-10-14 11:55] VITALS: BP 138/71
--- NOTE | 2019-10-14 11:56 | NUR ---
NURSE NOTES: Received report from RENETTA Delcid. Pt alert and orientedx4 and able to make needs known. Denied pain. Denied SOB. IV RAC 22G SL patent and asymptomatic. personal belongings reviewed and noted. Bed in lowest position and locked. Side rails x2 up for safety. ambulate with steady gait. Right chest drsg intact and dry. Call light within easy reach. Bed in lowest position and locked. Will continue to plan of care.
--- NOTE | 2019-10-14 12:35 | NUR ---
RD ASSESSMENT & RECOMMENDATIONS SEE CARE ACTIVITY FOR COMPLETE ASSESSMENT DAILY ESTIMATED NEEDS: Needs based on DM, CARDAIC/ 66kg 25-30 kcals/kg total kcals 1-1.3 g protein/kg 66-86 g total protein 25-30 mL/kg total fluid mLs NUTRITION DIAGNOSIS: Altered nutrition related lab values R/T diabetes as evidenced by uncontrolled BGs w/ POC glu ([phone]) CURRENT DIET:SRINI, CCHO HIGH, soft easy chew PO DIET RECOMMENDATIONS: SRINI + CCHO LOW/ texture as tolerated ADDITIONAL RECOMMENDATIONS: * Standing wt for accurate CBW * A1C for eval of glycemic control * Consider long acting insulin for improved BG control * Monitor for continued good PO intake
[2019-10-14] MEDS ORDERED: Guaifenesin/DM 10ml syrup ORAL PRN (13:30)
--- NOTE | 2019-10-14 15:33 | NUR ---
NURSE NOTES: Patient refused IV abx Cefepime. Patient asked RN what abx was for, RN explained reason for administering abx. Patient said "I don't wan it". RN explained risks of not taking abx. Patient still refused.
[2019-10-14 16:00] VITALS: BP 114/71
--- NOTE | 2019-10-14 16:06 | NUR ---
CASE MANAGEMENT:REVIEW 10/14/19 SI: CHEST PAIN. ELEVATED TROPONIN. PNA 97.0 82 18 145/86 95% ON RA BG 300 CK 379 COCAINE (+) IS: METFORMIN PO TIAC NOVOLOG SQ AC&HS IV VANCOMYCIN BID HEPARIN SQ BID \: TRANSFER TO MED SURG PLAN: PATIENT COMPLAINT START ON ROCEPHIN
--- NOTE | 2019-10-14 19:01 | NUR ---
HAND-OFF: Report given to
--- NOTE | 2019-10-14 19:34 | NUR ---
NURSE NOTES: Received patient awake, alert, verbal, resting in bed, comfortable.
[2019-10-14 20:00] VITALS: BP 149/84
[2019-10-14] MEDS: Heparin 5000 units/ml inj SUBQ SCH (20:23)
--- NOTE | 2019-10-14 20:24 | NUR ---
NURSE NOTES: Patient refuse to have blood drawn for vanco trough and refused his medications too.
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
[2019-10-14] MEDS: Vancomycin 1 GM in D5W 275 ML IVPB SCH (22:00)
--- NOTE | 2019-10-15 02:30 | Progress Note ---
DATE: 10/14/2019 INTERNAL MEDICINE PROGRESS NOTE SUBJECTIVE: The patient offers no new complaints. He refused continued cardiac monitoring. However, his monitored rhythm is sinus with no ectopy and it was discontinued. OBJECTIVE: VITAL SIGNS: Blood pressure 138/71, pulse 87, respirations 19, and afebrile. LUNGS: Few rhonchi at the right. HEART: Regular rhythm and rate. Normal S1, S2. ABDOMEN: Soft. EXTREMITIES: No edema. LABORATORY DATA: White count 6.3 and hemoglobin 14.1. Chemistry panel within normal limits. Glucose 300. CK 379. Troponin now 0. Albumin 3. Total cholesterol 204 and LDL 110. TSH 1.7. IMPRESSION: 1. Pneumonia status post pneumothorax. 2. Status post right orbital fracture. 3. Type 2 diabetes mellitus with hyperglycemia. 4. Hypertension. 5. Acute myocardial ischemia. PLAN: 1. Antimicrobials. 2. Respiratory hygiene. 3. Await cultures. 4. Advance diabetic regimen. 5. Add statin drug. Percy Cuevas M.D. DR: WILEY JOB#: [id number] CC:
[2019-10-15] MEDS: Cefepime HCl 1 GM in D5W 55 ML IVPB SCH ×2 (03:00→15:00)
[2019-10-15] MEDS: metFORMIN 500mg tab ORAL SCH ×2 (06:21→16:40)
[2019-10-15] MEDS: GlipiZIDE 5mg tab ORAL SCH ×2 (06:22→16:40)
[2019-10-15] MEDS: NovoLOG Insulin Flexpen SUBQ SCH ×4 (06:24→19:36)
--- NOTE | 2019-10-15 07:16 | NUR ---
HAND-OFF: Report given to Aminta Cohen LVN.
--- NOTE | 2019-10-15 07:25 | NUR ---
NURSE NOTES: Received report from Mae. Pt A/A/Ox4 and able to make needs known. Denies pain. no sob noted. IV RAC 22G SL patent and asymptomatic. Bed in lowest position and locked. Side rails x2 up for safety. steady gait. Call light within easy reach. Bed in lowest position and locked. Will continue to plan of care.
[2019-10-15 08:00] VITALS: BP 138/80
[2019-10-15] MEDS: Aspirin Baby 81mg ORAL SCH (08:26)
[2019-10-15] MEDS: Heparin 5000 units/ml inj SUBQ SCH ×2 (08:30→19:35)
--- NOTE | 2019-10-15 08:44 | Pulmonology Progress Note ---
Assessment/Plan Assessment/Plan IMPRESSION: 1. Pneumonia. 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 Recent pneumothorax. 3. Homelessness. 4. Previous orbital fracture. 5. Chest pain 6. CAD. 7. Substance abuse. DISCUSSION: 1. Admit to the hospital as per Dr. Cuevas. 2. I have reviewed his medications and note that he has been started on antibiotics with which I concur. 3. He needs diabetic monitoring as well. 4.His tox screen is positive for cocaine Elliott Valero M.D. Subjective Interval Events: Urine tox + for cocaine Constitutional: Reports: no symptoms HEENT: Repors: no symptoms Respiratory: Reports: no symptoms Cardiovascular: Reports: no symptoms Gastrointestinal/Abdominal: Reports: no symptoms Genitourinary: Reports: no symptoms Allergies: Coded Allergies: No Known Allergies (Unverified , 05/20/18) Objective Last 24 Hour Vital Signs Date Time Temp Pulse Resp B/P (MAP) Pulse Ox O2 Delivery O2 Flow Rate FiO2 10/14/19 20:16 Room Air 10/14/19 20:00 98.3 99 21 149/84 (105) 100 10/14/19 16:00 98.7 83 19 114/71 (85) 100 10/14/19 11:55 97.8 87 19 138/71 (93) 99 10/14/19 09:00 Room Air Intake and Output 10/14/19 10/15/19 18:59 06:59 Intake Total 840 ml Output Total 800 ml Balance 840 ml -800 ml Intake Oral 840 ml Output Urine Total 800 ml # Voids 3 General Appearance: no acute distress HEENT: normocephalic Respiratory/Chest: chest wall non-tender, lungs clear Cardiovascular: normal peripheral pulses Abdomen: normal bowel sounds Microbiology Date/Time Source Procedure Growth Status 10/13/19 04:45 Rectum - Final NO CARBAPENEM-RESISTANT ENTEROBACTERI... Complete 10/13/19 04:45 Rectum VRE Culture - Final NO VANCOMYCIN RESISTANT ENTEROCOCCUS ... Complete Current Medications Medications (Trade) Dose Ordered Sig/Robbie Route PRN Reason Start Time Stop Time Status Last Admin Dose Admin Acetaminophen (Tylenol) 650 mg Q6H PRN ORAL Mild Pain/Temp > 100.5 10/14/19 15:30 11/12/19 09:29 Acetaminophen/ Hydrocodone Bitart ([place] 5/325) 1 tab Q6H PRN ORAL Moderate Pain (Pain Scale 4-6) 10/14/19 15:30 10/20/19 09:29 Aspirin (ASA) 81 mg DAILY ORAL 10/15/19 09:00 11/13/19 08:59 10/15/19 08:26 Cefepime HCl 1 gm/ Dextrose 55 ml @ 110 mls/hr Q12H IVPB 10/14/19 15:00 10/20/19 14:59 Dextrose (Dextrose 50%) 25 ml Q30M PRN IV Hypoglycemia 10/14/19 11:30 11/12/19 09:29 Dextrose (Dextrose 50%) 50 ml Q30M PRN IV Hypoglycemia 10/14/19 11:30 11/12/19 09:29 Glipizide (Glucotrol) 5 mg BIAC ORAL 10/15/19 06:30 11/14/19 06:29 Guaifenesin/ Dextromethorphan (Robitussin DM Syrup) 10 ml Q4H PRN ORAL For Cough 10/14/19 13:30 11/12/19 09:29 Heparin Sodium (Porcine) (Heparin 5000 units/ml) 5,000 units EVERY 12 HOURS SUBQ 10/14/19 21:00 11/13/19 08:59 10/15/19 08:30 Insulin Aspart (NovoLOG) BEFORE MEALS AND HS SUBQ 10/14/19 11:30 11/12/19 11:29 10/14/19 16:48 Metformin HCl (Glucophage) 1,000 mg BIAC ORAL 10/15/19 06:30 11/14/19 06:29 Pravastatin Sodium (Pravachol) 20 mg BEDTIME ORAL 10/15/19 21:00 11/14/19 20:59 Vancomycin HCl (Vanco rx to dose) 1 ea DAILY PRN MISC Per rx protocol 10/15/19 09:00 11/12/19 09:14 Vancomycin HCl 1 gm/Dextrose 275 ml @ 183.708 mls/hr Q12H IVPB 10/14/19 22:00 10/18/19 09:59 Elliott Valero MD Oct 15, 2019 08:44
--- NOTE | 2019-10-15 09:18 | NUR ---
NURSE NOTES: called Dr Cuevas's office and spoke with Meaghan re: patient refused CT head/orbits. Patient stated that he had one done when he was @ [facility]. awaits for a call back
[2019-10-15] MEDS: Vancomycin 1 GM in D5W 275 ML IVPB SCH ×2 (11:40→19:35)
[2019-10-15 11:51] VITALS: BP 137/87
--- NOTE | 2019-10-15 14:25 | NUR ---
CASE MANAGEMENT:REVIEW 10/15/19 SI: PNA. AMI 97.3 90 21 137/87 97% ON RA TCK+379 IS: IV VANCOMYCIN Q12 IV CEFEPIME Q12 ASA PO QD METFORMIN PO BID GLIPIZIDE PO BID HEPARIN SQ Q12 : MED/SURG STATUS PLAN: AWAIT CULTURES
--- NOTE | 2019-10-15 15:09 | NUR ---
DISCHARGE PLANNING BILINGUAL TEACHER ASSISTANT ASKED HOMELESS COORDINATOR, EBENEZER, TO SPEAK WITH PATIENT ABOUT HOMELESSNESS AND DISCHARGE DISPOSITION
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
[2019-10-15] MEDS: HYDROcodone/Acetamin 5/325 tab ORAL PRN ×2 (15:29→21:36)
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
--- NOTE | 2019-10-15 16:23 | Infectious Diseases Prog Note ---
Assessment/Plan Assessment/Plan A 1. pneumonia 2. CAD 3. diabetes mellitus 4. pneumothorax resolved P 1. continue vancomycin iv, cefepime 2. will follow up cultures 3. UA Subjective ROS Limited/Unobtainable: No Constitutional: Reports: no symptoms HEENT: Reports: other - headache Respiratory: Reports: other - blood in sputum Cardiovascular: Reports: chest pain Allergies: Coded Allergies: No Known Allergies (Unverified , 05/20/18) Objective Vital Signs Last 24 Hour Vital Signs Date Time Temp Pulse Resp B/P (MAP) Pulse Ox O2 Delivery O2 Flow Rate FiO2 10/15/19 11:51 97.3 90 21 137/87 (104) 97 10/15/19 08:45 Room Air 10/15/19 08:00 98.2 90 20 138/80 (99) 99 10/14/19 20:16 Room Air 10/14/19 20:00 98.3 99 21 149/84 (105) 100 Height (Feet): 5 Height (Inches): 9.00 Weight (Pounds): 148 General Appearance: no acute distress HEENT: mucous membranes moist Respiratory/Chest: lungs clear Cardiovascular: normal rate Abdomen: soft, non tender Extremities: no edema Neurologic/Psychiatric: alert, oriented x 3, responsive Microbiology Date/Time Source Procedure Growth Status 10/13/19 04:45 Nasal Nares MRSA Culture - Final NO METHICILLIN RESISTANT STAPH AUREUS... Complete 10/13/19 04:45 Rectum - Final NO CARBAPENEM-RESISTANT ENTEROBACTERI... Complete 10/13/19 04:45 Rectum VRE Culture - Final NO VANCOMYCIN RESISTANT ENTEROCOCCUS ... Complete Current Medications Medications (Trade) Dose Ordered Sig/Robbie Route PRN Reason Start Time Stop Time Status Last Admin Dose Admin Acetaminophen (Tylenol) 650 mg Q6H PRN ORAL Mild Pain/Temp > 100.5 10/14/19 15:30 11/12/19 09:29 Acetaminophen/ Hydrocodone Bitart ([place] 5/325) 1 tab Q6H PRN ORAL Moderate Pain (Pain Scale 4-6) 10/14/19 15:30 10/20/19 09:29 10/15/19 15:29 Aspirin (ASA) 81 mg DAILY ORAL 10/15/19 09:00 11/13/19 08:59 10/15/19 08:26 Cefepime HCl 1 gm/ Dextrose 55 ml @ 110 mls/hr Q12H IVPB 10/14/19 15:00 10/20/19 14:59 Dextrose (Dextrose 50%) 25 ml Q30M PRN IV Hypoglycemia 10/14/19 11:30 11/12/19 09:29 Dextrose (Dextrose 50%) 50 ml Q30M PRN IV Hypoglycemia 10/14/19 11:30 11/12/19 09:29 Glipizide (Glucotrol) 5 mg BIAC ORAL 10/15/19 06:30 11/14/19 06:29 Guaifenesin/ Dextromethorphan (Robitussin DM Syrup) 10 ml Q4H PRN ORAL For Cough 10/14/19 13:30 11/12/19 09:29 Heparin Sodium (Porcine) (Heparin 5000 units/ml) 5,000 units EVERY 12 HOURS SUBQ 10/14/19 21:00 11/13/19 08:59 10/15/19 08:30 Insulin Aspart (NovoLOG) BEFORE MEALS AND HS SUBQ 10/14/19 11:30 11/12/19 11:29 10/14/19 16:48 Metformin HCl (Glucophage) 1,000 mg BIAC ORAL 10/15/19 06:30 11/14/19 06:29 Pravastatin Sodium (Pravachol) 20 mg BEDTIME ORAL 10/15/19 21:00 11/14/19 20:59 Vancomycin HCl (Vanco rx to dose) 1 ea DAILY PRN MISC Per rx protocol 10/15/19 09:00 11/12/19 09:14 Vancomycin HCl 1 gm/Dextrose 275 ml @ 183.708 mls/hr Q12H IVPB 10/14/19 22:00 10/18/19 09:59 10/15/19 11:40 Joao Ramos MD Oct 15, 2019 16:23
--- NOTE | 2019-10-15 18:55 | NUR ---
HAND-OFF: Report given to
--- NOTE | 2019-10-15 19:30 | NUR ---
NURSE NOTES: Received patient awake, alert, aggressive, uncooperative, resting in bed without complaints.
[2019-10-15 20:00] VITALS: BP 132/84
--- NOTE | 2019-10-16 01:30 | Progress Note ---
DATE: 10/16/2019 CARDIOLOGY AND INTERNAL MEDICINE PROGRESS NOTE SUBJECTIVE: The patient still has some congestion and cough. OBJECTIVE: VITAL SIGNS: Noted. He remains afebrile. LUNGS: Few rhonchi at the right. CARDIAC: Regular rhythm and rate. Normal S1, S2. ABDOMEN: Soft. EXTREMITIES: No edema. IMPRESSION: 1. Healthcare-acquired pneumonia, status post pneumothorax. 2. Cocaine intoxication and abuse. 3. Acute on chronic diastolic congestive heart failure. 4. Acute myocardial ischemia. 5. Dyslipidemia. 6. Type 2 diabetes mellitus with hyperglycemia. PLAN: 1. Antibiotics. 2. Respiratory hygiene. 3. Anti-lipid therapy. 4. Advanced diabetic regimen. 5. Placement and drug counseling. Percy Cuevas M.D. DR: JOSELINE JOB#: [id number] CC:
[2019-10-16] MEDS: Cefepime HCl 1 GM in D5W 55 ML IVPB SCH ×2 (03:00→16:35)
[2019-10-16] MEDS: metFORMIN 500mg tab ORAL SCH ×2 (06:08→16:30)
[2019-10-16] MEDS: GlipiZIDE 5mg tab ORAL SCH ×2 (06:08→16:30)
[2019-10-16] MEDS: NovoLOG Insulin Flexpen SUBQ SCH ×4 (06:08→21:00)
--- NOTE | 2019-10-16 07:26 | NUR ---
HAND-OFF: Report given to Graciela Quinteros RN.
--- NOTE | 2019-10-16 08:05 | NUR ---
NURSE NOTES: Patient resting, alert and oriented,respirations unlabored.patient ate breakfast.Call light within reach.
[2019-10-16 08:50] VITALS: BP 132/69
[2019-10-16] MEDS: Aspirin Baby 81mg ORAL SCH (08:57)
[2019-10-16] MEDS: Heparin 5000 units/ml inj SUBQ SCH ×2 (08:59→21:00)
--- NOTE | 2019-10-16 09:26 | Infectious Diseases Prog Note ---
Assessment/Plan Assessment/Plan A 1. pneumonia 2. CAD 3. diabetes mellitus 4. pneumothorax resolved P 1. continue vancomycin iv, cefepime 2. will follow up cultures 3.repeat CXR Subjective ROS Limited/Unobtainable: No Constitutional: Reports: other - dosen't feel good Respiratory: Reports: other - chest pain with breathing, blood in sputum Gastrointestinal/Abdominal: Reports: no symptoms Genitourinary: Reports: no symptoms Allergies: Coded Allergies: No Known Allergies (Unverified , 05/20/18) Objective Vital Signs Last 24 Hour Vital Signs Date Time Temp Pulse Resp B/P (MAP) Pulse Ox O2 Delivery O2 Flow Rate FiO2 10/16/19 08:50 99.0 81 18 132/69 (90) 99 10/15/19 22:06 98.0 10/15/19 20:57 Room Air 10/15/19 20:00 98.0 88 18 132/84 (100) 96 10/15/19 11:51 97.3 90 21 137/87 (104) 97 Height (Feet): 5 Height (Inches): 9.00 Weight (Pounds): 148 General Appearance: no acute distress HEENT: mucous membranes moist Respiratory/Chest: lungs clear Cardiovascular: normal rate Abdomen: soft, non tender Extremities: pedal pulses normal Neurologic/Psychiatric: alert, oriented x 3, responsive Current Medications Medications (Trade) Dose Ordered Sig/Robbie Route PRN Reason Start Time Stop Time Status Last Admin Dose Admin Acetaminophen (Tylenol) 650 mg Q6H PRN ORAL Mild Pain/Temp > 100.5 10/14/19 15:30 11/12/19 09:29 Acetaminophen/ Hydrocodone Bitart ([place] 5/325) 1 tab Q6H PRN ORAL Moderate Pain (Pain Scale 4-6) 10/14/19 15:30 10/20/19 09:29 10/15/19 21:36 Aspirin (ASA) 81 mg DAILY ORAL 10/15/19 09:00 11/13/19 08:59 10/16/19 08:57 Cefepime HCl 1 gm/ Dextrose 55 ml @ 110 mls/hr Q12H IVPB 10/14/19 15:00 10/20/19 14:59 Dextrose (Dextrose 50%) 25 ml Q30M PRN IV Hypoglycemia 10/14/19 11:30 11/12/19 09:29 Dextrose (Dextrose 50%) 50 ml Q30M PRN IV Hypoglycemia 10/14/19 11:30 11/12/19 09:29 Glipizide (Glucotrol) 5 mg BIAC ORAL 10/15/19 06:30 11/14/19 06:29 10/15/19 16:40 Guaifenesin/ Dextromethorphan (Robitussin DM Syrup) 10 ml Q4H PRN ORAL For Cough 10/14/19 13:30 11/12/19 09:29 Heparin Sodium (Porcine) (Heparin 5000 units/ml) 5,000 units EVERY 12 HOURS SUBQ 10/14/19 21:00 11/13/19 08:59 10/16/19 08:59 Insulin Aspart (NovoLOG) BEFORE MEALS AND HS SUBQ 10/14/19 11:30 11/12/19 11:29 10/15/19 19:36 Metformin HCl (Glucophage) 1,000 mg BIAC ORAL 10/15/19 06:30 11/14/19 06:29 10/15/19 16:40 Pravastatin Sodium (Pravachol) 20 mg BEDTIME ORAL 10/15/19 21:00 11/14/19 20:59 10/15/19 21:36 Vancomycin HCl (Vanco rx to dose) 1 ea DAILY PRN MISC Per rx protocol 10/15/19 09:00 11/12/19 09:14 Vancomycin HCl 1 gm/Dextrose 275 ml @ 183.708 mls/hr Q12H IVPB 10/14/19 22:00 10/18/19 09:59 10/15/19 19:35 Joao Ramos MD Oct 16, 2019 09:26
--- NOTE | 2019-10-16 09:36 | NUR ---
CASE MANAGEMENT:REVIEW 10/16/19 SI: PNA. AMI 99.0 81 18 132/69 99% ON RA IS: IV VANCOMYCIN Q12 IV CEFEPIME Q12 ASA PO QD METFORMIN PO BID GLIPIZIDE PO BID HEPARIN SQ Q12 : MED/SURG STATUS DCP: HOMELESS PLAN: CHEST XRAY SEEK PLACEMENT
--- NOTE | 2019-10-16 09:39 | NUR ---
DISCHARGE PLANNING PATIENT HAS BEEN REFERRED TO: [facility] AWAIT RESPONSE
[2019-10-16] MEDS: Vancomycin 1 GM in D5W 275 ML IVPB SCH ×2 (10:17→21:13)
[2019-10-16 12:46] VITALS: BP 158/87
[2019-10-16 16:18] VITALS: BP 144/86
--- NOTE | 2019-10-16 17:36 | Pulmonology Progress Note ---
Assessment/Plan Assessment/Plan IMPRESSION: 1. Pneumonia. 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 Recent pneumothorax. 3. Homelessness. 4. Previous orbital fracture. 5. Chest pain 6. CAD. 7. Substance abuse. DISCUSSION: 1. continue current medications 2. I have reviewed his medications and note that he has been started on antibiotics with which I concur. 3. diabetes monitoring 4.His tox screen is positive for cocaine Elliott Valero M.D. Subjective Interval Events: none new reported Constitutional: Reports: no symptoms HEENT: Repors: no symptoms Respiratory: Reports: no symptoms Cardiovascular: Reports: no symptoms Gastrointestinal/Abdominal: Reports: no symptoms Allergies: Coded Allergies: No Known Allergies (Unverified , 05/20/18) Objective Last 24 Hour Vital Signs Date Time Temp Pulse Resp B/P (MAP) Pulse Ox O2 Delivery O2 Flow Rate FiO2 10/16/19 16:18 98.2 86 18 144/86 (105) 98 10/16/19 12:46 97.5 88 18 158/87 (110) 98 10/16/19 09:00 Room Air 10/16/19 08:50 99.0 81 18 132/69 (90) 99 10/15/19 22:06 98.0 10/15/19 20:57 Room Air 10/15/19 20:00 98.0 88 18 132/84 (100) 96 Intake and Output 10/15/19 10/16/19 19:00 07:00 Intake Total 1715.000 ml 755.000 ml Balance 1715.000 ml 755.000 ml Intake Oral 1440 ml 480 ml IV Total 275.000 ml 275.000 ml # Voids 3 3 General Appearance: no acute distress HEENT: normocephalic Respiratory/Chest: chest wall non-tender, lungs clear Cardiovascular: normal peripheral pulses, normal rate Abdomen: normal bowel sounds Current Medications Medications (Trade) Dose Ordered Sig/Robbie Route PRN Reason Start Time Stop Time Status Last Admin Dose Admin Acetaminophen (Tylenol) 650 mg Q6H PRN ORAL Mild Pain/Temp > 100.5 10/14/19 15:30 11/12/19 09:29 Acetaminophen/ Hydrocodone Bitart ([place] 5/325) 1 tab Q6H PRN ORAL Moderate Pain (Pain Scale 4-6) 10/14/19 15:30 10/20/19 09:29 10/15/19 21:36 Aspirin (ASA) 81 mg DAILY ORAL 10/15/19 09:00 11/13/19 08:59 10/16/19 08:57 Cefepime HCl 1 gm/ Dextrose 55 ml @ 110 mls/hr Q12H IVPB 10/14/19 15:00 10/20/19 14:59 10/16/19 16:35 Dextrose (Dextrose 50%) 25 ml Q30M PRN IV Hypoglycemia 10/14/19 11:30 11/12/19 09:29 Dextrose (Dextrose 50%) 50 ml Q30M PRN IV Hypoglycemia 10/14/19 11:30 11/12/19 09:29 Glipizide (Glucotrol) 5 mg BIAC ORAL 10/15/19 06:30 11/14/19 06:29 10/15/19 16:40 Guaifenesin/ Dextromethorphan (Robitussin DM Syrup) 10 ml Q4H PRN ORAL For Cough 10/14/19 13:30 11/12/19 09:29 Heparin Sodium (Porcine) (Heparin 5000 units/ml) 5,000 units EVERY 12 HOURS SUBQ 10/14/19 21:00 11/13/19 08:59 10/16/19 08:59 Insulin Aspart (NovoLOG) BEFORE MEALS AND HS SUBQ 10/14/19 11:30 11/12/19 11:29 10/16/19 12:46 Metformin HCl (Glucophage) 1,000 mg BIAC ORAL 10/15/19 06:30 11/14/19 06:29 10/15/19 16:40 Pravastatin Sodium (Pravachol) 20 mg BEDTIME ORAL 10/15/19 21:00 11/14/19 20:59 10/15/19 21:36 Vancomycin HCl (Vanco rx to dose) 1 ea DAILY PRN MISC Per rx protocol 10/15/19 09:00 11/12/19 09:14 Vancomycin HCl 1 gm/Dextrose 275 ml @ 183.708 mls/hr Q12H IVPB 10/14/19 22:00 10/18/19 09:59 10/16/19 10:17 Elliott Valero MD Oct 16, 2019 17:36
--- NOTE | 2019-10-16 17:45 | NUR ---
NURSE NOTES: Patient refusing medication,patient state get out I am going to sleep now and shut my door.Will continue to monitor.Patient ate all of dinner.Patient refuse CT as ordered previously.
--- NOTE | 2019-10-16 19:42 | Diagnostic Imaging Report ---
Indication: Cough Technique: One view of the chest Comparison: 10/13/2019 Findings: No acute infiltrates, effusions, or congestion. Tortuous calcified aorta. Normal heart size. Upper mediastinum unremarkable. No significant change Impression: No acute process.
--- NOTE | 2019-10-16 19:45 | NUR ---
HAND-OFF: Report given to Clarisa Reyes RN.
--- NOTE | 2019-10-16 19:50 | NUR ---
NURSE NOTES: Received a report from RENETTA Owens. Pt is in stable condition. AAOX4. Able to make needs known. On room air. No c/o pain/discomfort. IV site is patent and intact. Bed in lowest position. Bed alarm is on. Call light within reach. Will continue to monitor.
[2019-10-16 20:00] VITALS: BP 149/100
--- NOTE | 2019-10-16 21:00 | NUR ---
NURSE NOTES: Pt refused vanco trough and all of his medications despite education provided. He verbalized that he does not want to be bothered. Charge Nurse Macy made aware. Will continue to monitor.
--- NOTE | 2019-10-16 22:35 | NUR ---
NURSE NOTES: Received pt from Clarisa to continue care. Pt is sleeping on room air. No c/o pain/discomfort. IV site is patent and intact. Bed locked, lowest position, side rails up, call light within reach. Will continue to monitor.
--- NOTE | 2019-10-16 22:50 | NUR ---
HAND-OFF: Report given to RENETTA Bender.
[2019-10-17] MEDS: Cefepime HCl 1 GM in D5W 55 ML IVPB SCH (03:00)
[2019-10-17 04:00] VITALS: BP 128/85
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
[2019-10-17] MEDS: metFORMIN 500mg tab ORAL SCH (06:12)
[2019-10-17] MEDS: NovoLOG Insulin Flexpen SUBQ SCH ×2 (06:15→06:36)
[2019-10-17] MEDS ORDERED: GlipiZIDE 5mg tab ORAL SCH ×2 (06:30→11:30)
--- NOTE | 2019-10-17 06:44 | Pulmonology Progress Note ---
Assessment/Plan Assessment/Plan IMPRESSION: 1. Pneumonia. Suspect crack lung; CXR now normal 2. Recent pneumothorax. 3. Homelessness. 4. Previous orbital fracture. 5. Chest pain 6. CAD. 7. Substance abuse. DISCUSSION: 1. continue current medications 2. May dc abx 3. diabetes monitoring 4. His tox screen is positive for cocaine 5. DC planning Elliott Valero M.D. Subjective Interval Events: CXR improved Constitutional: Reports: no symptoms HEENT: Repors: no symptoms Respiratory: Reports: no symptoms Cardiovascular: Reports: no symptoms Gastrointestinal/Abdominal: Reports: no symptoms Allergies: Coded Allergies: No Known Allergies (Unverified , 05/20/18) Objective Last 24 Hour Vital Signs Date Time Temp Pulse Resp B/P (MAP) Pulse Ox O2 Delivery O2 Flow Rate FiO2 10/17/19 04:00 98.4 94 20 128/85 (99) 99 10/16/19 21:00 Room Air 10/16/19 20:00 97.6 96 21 149/100 (116) 98 10/16/19 16:18 98.2 86 18 144/86 (105) 98 10/16/19 12:46 97.5 88 18 158/87 (110) 98 10/16/19 09:00 Room Air 10/16/19 08:50 99.0 81 18 132/69 (90) 99 Intake and Output 10/16/19 10/17/19 19:00 07:00 Intake Total 600 ml Balance 600 ml Intake Oral 600 ml General Appearance: no acute distress HEENT: normocephalic Respiratory/Chest: chest wall non-tender Cardiovascular: normal peripheral pulses Abdomen: normal bowel sounds Current Medications Medications (Trade) Dose Ordered Sig/Robbie Route PRN Reason Start Time Stop Time Status Last Admin Dose Admin Acetaminophen (Tylenol) 650 mg Q6H PRN ORAL Mild Pain/Temp > 100.5 10/14/19 15:30 11/12/19 09:29 Acetaminophen/ Hydrocodone Bitart ([place] 5/325) 1 tab Q6H PRN ORAL Moderate Pain (Pain Scale 4-6) 10/14/19 15:30 10/20/19 09:29 10/15/19 21:36 Aspirin (ASA) 81 mg DAILY ORAL 10/15/19 09:00 11/13/19 08:59 10/16/19 08:57 Cefepime HCl 1 gm/ Dextrose 55 ml @ 110 mls/hr Q12H IVPB 10/14/19 15:00 10/20/19 14:59 10/16/19 16:35 Dextrose (Dextrose 50%) 25 ml Q30M PRN IV Hypoglycemia 10/14/19 11:30 11/12/19 09:29 Dextrose (Dextrose 50%) 50 ml Q30M PRN IV Hypoglycemia 10/14/19 11:30 11/12/19 09:29 Glipizide (Glucotrol) 5 mg TIAC ORAL 10/17/19 06:30 11/14/19 06:29 10/17/19 06:12 Guaifenesin/ Dextromethorphan (Robitussin DM Syrup) 10 ml Q4H PRN ORAL For Cough 10/14/19 13:30 11/12/19 09:29 Heparin Sodium (Porcine) (Heparin 5000 units/ml) 5,000 units EVERY 12 HOURS SUBQ 10/14/19 21:00 11/13/19 08:59 10/16/19 08:59 Insulin Aspart (NovoLOG) BEFORE MEALS AND HS SUBQ 10/14/19 11:30 11/12/19 11:29 10/17/19 06:36 Metformin HCl (Glucophage) 1,000 mg BIAC ORAL 10/15/19 06:30 11/14/19 06:29 10/17/19 06:12 Pravastatin Sodium (Pravachol) 20 mg BEDTIME ORAL 10/15/19 21:00 11/14/19 20:59 10/15/19 21:36 Elliott Valero MD Oct 17, 2019 06:44
--- NOTE | 2019-10-17 07:00 | NUR ---
NURSE NOTES: RN tried to give insulin but pt was upset and refused id band scan. Pt slammed door, yelled, cursed, and verbally abused to nurse. Noted pt taking video with his cell phone without consent. Called corporate physical security supervisor. After then, he agreed to scan id band and received insulin.
--- NOTE | 2019-10-17 07:25 | NUR ---
HAND-OFF: Report given to RENETTA Greer.
--- NOTE | 2019-10-17 07:30 | NUR ---
NURSE NOTES: Report received from Rhonda JACKSON. Patient awake and alert x 4, laying in bed supine. Communicated with patient that Angelito and Precy JACKSON will be his nurses today October 17. The patient was agitated, stated that we will not be taking care of him, and does not want to be bothered at this time. Will continue to monitor patient and follow plan of care.
--- NOTE | 2019-10-17 08:36 | NUR ---
NURSE NOTES: Patient was at nursing station and requesting to speak to his doctor. A message was left for MD Cuevas prior to him coming to the station again. He stated he wanted to leave but refused to sign AMA paperwork. Patient refused to stay and stated he did not want to hear what I had to say. I accompanied him down the elevator and charge nurse Tara notified security. At the first floor I asked patient to let me remove his IV's as I did not want him to leave with them and risk infection. He then let me remove and cover sites. I asked him if he had all his belongings, which he stated he did. I then removed his ID band. I asked patient what message he wanted me to relay to MD Cuevas and he stated he wanted his prescribed medications. He then departed the hospital on foot.
--- NOTE | 2019-10-17 16:38 | NUR ---
*-* INSURANCE *-* ALL CLINICALS HAVE BEEN FAXED TO: REN GALLARDO: AMY REF# [id number] P: [phone] F: [phone]
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
--- NOTE | 2019-10-20 09:24 | Cardiology Report ---
APPROVED REPORT EKG Measurement Heart [id number] <Conclusion> Sinus rhythm with premature atrial complexes Possible Left atrial enlargement Nonspecific T wave abnormality Prolonged QT Abnormal ECG
== END 2019-10-17 08:46 | disposition left against medical advice (07) | DRG 139 ==
LOC: EDUNIT# 00:28 → EDBD 00:28 → EMR 01:40 → EDBEDREQ 05:48 → 2E 06:11 → 4E 10-14 11:09
DX: J18.9 Pneumonia, unspecified organism (principal); I25.10 Atherosclerotic heart disease of native coronary artery without angina pectoris; Z95.5 Presence of coronary angioplasty implant and graft; I10 Essential (primary) hypertension; E11.9 Type 2 diabetes mellitus without complications; F17.200 Nicotine dependence, unspecified, uncomplicated; Z79.84 Long term (current) use of oral hypoglycemic drugs; Z59.0 Homelessness; S02.85XD Fracture of orbit, unspecified, subsequent encounter for fracture with routine healing; X58.XXXD Exposure to other specified factors, subsequent encounter; F19.11 Other psychoactive substance abuse, in remission; F10.10 Alcohol abuse, uncomplicated; F14.129 Cocaine abuse with intoxication, unspecified
CPT/HCPCS: 36415; 71045; 71250; 80053; 80061; 80307; 82550; 82962; 83880; 84100; 84443; 84484; 85025; 86703; 87081; 93005; 93306; 96365; 99285; J1815

== ENCOUNTER 2019-12-04 09:52 | Emergency (ER) | payer MEDICARE, MEDICAID ==
[~2019-12-04] VITALS: Ht 172.7 cm; Wt 63.0 kg
[~2019-12-04 09:52] MED LIST changes: +OXYCODONE H5 MG/5 ML ORAL
[2019-12-04 10:00] VITALS: BP 166/74
[2019-12-04 11:02] LABS: BASOPHILS % (AUTO) 1.5 % (0.0-2.0); EOSINOPHILS % (AUTO) 1.9 % (0.0-3.0); HEMATOCRIT 42.1 % (42.0-52.0); HEMOGLOBIN 14.3 G/DL (14.2-18.0); LYMPHOCYTES % (AUTO) 17.2 % (20.0-45.0); MEAN CORPUSCULAR VOLUME 99 FL (80-99); MONOCYTES % (AUTO) 9.2 % (1.0-10.0); NEUTROPHILS % (AUTO) 70.2 % (45.0-75.0); PLATELET COUNT 237 K/UL (150-450); RED BLOOD COUNT 4.27 M/UL (4.70-6.10); RED CELL DISTRIBUTION WIDTH 11.8 % (11.6-14.8); WHITE BLOOD COUNT 5.5 K/UL (4.8-10.8)
[2019-12-04 11:41] LABS: ALANINE AMINOTRANSFERASE 49 U/L (12-78); ALBUMIN 3.8 G/DL (3.4-5.0); ALKALINE PHOSPHATASE 173 U/L (46-116); ANION GAP 10 mmol/L (5-15); ASPARTATE AMINO TRANSFERASE 42 U/L (15-37); BILIRUBIN,TOTAL 0.5 MG/DL (0.2-1.0); BLOOD UREA NITROGEN 10 mg/dL (7-18); CALCIUM 9.2 MG/DL (8.5-10.1); CARBON DIOXIDE 29 MMOL/L (21-32); CHLORIDE 97 MMOL/L (98-107); CKMB 4.4 NG/ML (0.0-3.6); CREATINE KINASE 652 U/L (26-308); CREATININE 1.2 MG/DL (0.55-1.30); POTASSIUM 4.1 MMOL/L (3.5-5.1); SODIUM 136 MMOL/L (136-145)
--- NOTE | 2019-12-04 12:17 | Diagnostic Imaging Report ---
Indication: Dyspnea Comparison: None A single view chest radiograph was obtained. Findings: No definite infiltrate or pulmonary vascular congestion identified. The heart is normal size. The aorta is mildly enlarged consistent with atherosclerotic vascular disease. There is an old fracture of the left clavicle. Impression: No acute disease
[2019-12-04] MEDS ORDERED: metFORMIN 500mg tab ORAL ONE (13:15)
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
[2019-12-04 13:53] LABS: APPEARANCE,URINE CLEAR; BILIRUBIN, URINE NEGATIVE (NEGATIVE); COLOR,URINE PALE YELLOW; GLUCOSE, URINE (UA) 4+ (NEGATIVE); KETONES,URINE NEGATIVE (NEGATIVE); LEUKOCYTE ESTERASE ,URINE NEGATIVE (NEGATIVE); NITRITE,URINE NEGATIVE (NEGATIVE); PH,URINE 7 (4.5-8.0); PROTEIN,URINE NEGATIVE (NEGATIVE); UROBILINOGEN,URINE NORMAL MG/DL (0.0-1.0)
[2019-12-04] MEDS ORDERED: GLIPIZIDE5 MG ORAL (14:03)
[2019-12-04] MEDS ORDERED: LANTUS SOL100 UNIT/1 SUBQ (14:03)
[2019-12-04] MEDS ORDERED: ACTOS15 MG ORAL (14:03)
[2019-12-04] MEDS ORDERED: METFORMIN HCL500 M1 ORAL (14:03)
[2019-12-04 14:22] VITALS: BP 143/81
== END 2019-12-04 14:24 ==
LOC: EDBD 09:52 → EMR 10:10 → EDBD 10:10 → EMR 14:24
DX: E11.65 Type 2 diabetes mellitus with hyperglycemia (principal); Z91.14 Patient's other noncompliance with medication regimen; I10 Essential (primary) hypertension; Z86.79 Personal history of other diseases of the circulatory system
CPT/HCPCS: 36415; 71045; 80053; 80307; 81003; 82550; 82553; 83605; 84484; 85025; 93005; 96360; 96361; 99284; G0480; J7030